=== PATIENT | female | born 1945 | race Caucasian/White ===

== ENCOUNTER → 2018-09-17 | Day surgery (SDC) | payer MEDICARE, BC ==
[2018-09-16 11:34] LABS: BASOPHILS % 0.4 % (0.0-1.0); EOSINOPHILS # (AUTO) 0.1 (0.0-0.4); EOSINOPHILS % 2.1 % (0.0-6.0); HEMATOCRIT 40.7 % (34.2-44.1); HEMOGLOBIN 12.9 g/dL (12.0-16.0); LYMPHOCYTES # (AUTO) 1.2 (1.0-3.2); MEAN CORPUSCULAR HEMOGLOBIN 30.2 pg (28-32); MEAN CORPUSCULAR HGB CONC 31.7 g/dL (31-35); MEAN CORPUSCULAR VOLUME 95.3 fL (81-99); MONOCYTES # (AUTO) 0.4 (0.2-0.8); MONOCYTES % 7.3 % (4.4-11.3); NEUTROPHILS # (AUTO) 3.6 (2.1-6.9); PLATELET COUNT 74 x10e3/uL (140-360); RED BLOOD COUNT 4.27 x10e6/uL (3.6-5.1); RED CELL DISTRIBUTION WIDTH 14.8 % (11.7-14.4)
[2018-09-16 11:52] LABS: ALBUMIN 3.3 g/dL (3.5-5.0); ANION GAP 11.1 mmol/L (8-16); CALCIUM 9.7 mg/dL (8.4-10.2); CREATININE, SERUM 1.01 mg/dL (0.57-1.11); POTASSIUM 4.1 mmol/L (3.5-5.1)
[2018-09-17] VITALS (11 sets, daily range): BP systolic 125–175; BP diastolic 51–81
[~2018-09-17] VITALS: Ht 160 cm; Wt 112.5 kg
[~2018-09-17] MED LIST: ALDACTONE100 MG PO; ALPRAZOLAM 0.5 MG TAB ONE; AMBIEN5 MG PO; CALCIUM 1,0001 EACH PO; CALCIUM 500+D1 EACH PO; CETIRIZINE HCL10 MG PO; CLINDAGEL40 ML TOP; DICLOFENAC 1% GEL TOP; DIPHENHYDRAMINE HCL 25 MG CAP ONE; ELIQUIS PO; FENTANYL CITRATE/PF 100MCG/2 ML INJ ONE; FERROUS SULFAT325 MG PO; FOLIC ACID1 MG PO; FUROSEMIDE40 MG PO; GABAPENTIN300 MG PO; GLIMEPIRIDE2 MG PO; HEPARIN SOD (PORCINE) 1000 UNIT/ML 30ML ONE; HEPARIN SOD/SOD CHLORIDE 2,000 ML ONE; HYDROCODONE-CH473 ML PO; IOPAMIDOL 370 MG/ML 200 ML INFUS..BTL INJ ONE; ISOSORBIDE MONO30 MG PO; JANUMET XR 50-1 EAC1 PO; LEVOTHYROXINE300 MCG PO; LIDOCAINE HCL 1% LOCAL INJ 20 ML VIAL ONE; MAGNESIUM400 MG PO; METOPROLOL TART50 MG PO; MIDAZOLAM HCL 2 MG/2 ML VIAL ONE; MINOCYCLINE HCL50 MG PO; NITROGLYCERIN/D5W 200 MCG/ML 250 ML ONE; PANTOPRAZOLE SO40 MG PO; PROBIOTIC & AC1 EACH PO; SENNA S TABLET1 EACH PO; SODIUM CHLORIDE 0.9% 1000ML 1,000 ML ONE; SUPER OMEGA-31000 MG PO; TORSEMIDE20 MG PO; ULTRAM 50MG50 MG PO; VALACYCLOVIR500 MG PO; VERAPAMIL HCL 2.5 MG/ML 2 ML VIAL ONE; VITAMIN D32000 UNIT PO; XOPENEX HFA15 GM IH; ZOLPIDEM TART6.25 MG PO; [UNRECOGNIZED DRUG - OTHER] PO; [UNRECOGNIZED DRUG - OTHER] PO
--- OUTSIDE RECORDS SUMMARY | 2018-09-17 06:17 | XMS REPORT | Continuity of Care Document ---
Author Author [facility] Interface Address Unknown Phone Unavailable Problems Problem Status Onset Date Classification Date Reported Comments Source N20.0 Active 06/26/2018 [facility] UNK Active 05/22/2018 [facility] DX: TYPE II DIABETES C Active 04/15/2018 [facility] XRAY Active 04/12/2018 [facility] DX: TYPE II DIABETES Active 03/15/2018 [facility] K74.0 R10.84 Active 09/03/2017 [facility] R10.9 Active 03/20/2017 [facility] M54.5 - LOW BACK PAIN Active 01/01/2017 [facility] DX: N20.0=/ M54.5=/ K74.66=/ R31.29= Active 10/25/2016 [facility] STONE PROTOCOL DX: R10.10=UPPER ABDOMIN Active 10/05/2016 [facility] D58.0 D74.0 R19.7 I85.00 Active 08/14/2016 [facility] ANEMIA Active 12/01/2015 [facility] VENOFER INFUSION Active 08/30/2015 [facility] RX PENDING Active 08/19/2015 [facility] D53.9 Active 06/17/2015 [facility] ABD PAIN Active 01/08/2014 [facility] Bone cancer<sup>1</sup> Resolved 09/03/2006 Problem 06/29/2017 right side ribs [facility] [place] Abdominal pain Resolved Problem 06/29/2017 [facility] [place] Anemia Resolved Problem 06/29/2017 [facility] [place] Back pain Resolved Problem 06/29/2017 [facility] [place] Breast cancer Resolved Problem 06/29/2017 [facility] [place] CHF (<span [id number]">Confirmed</span>) Resolved Problem 06/29/2017 [facility] [place] Chronic sinusitis Resolved Problem 06/29/2017 [facility] [place] COPD Resolved Problem 06/29/2017 [facility] [place] Diabetes mellitus Active Problem 10/01/2015 [facility] Active Problem 06/29/2017 [facility] [place] GERD - Gastro-esophageal reflux disease Active Problem 06/29/2017 [facility] [place] GI bleeding Resolved Problem 06/29/2017 [facility] [place] Hernia Resolved Problem 06/29/2017 [facility] [place] Hypothyroidism Resolved Problem 06/29/2017 [facility] [place] Influenza Resolved Problem 06/29/2017 [facility] [place] Lymphoma Active Problem 04/29/2016 [facility] MRSA infection Resolved Problem 06/29/2017 [facility] [place] Pneumonia Active Problem 06/29/2017 [facility] [place] Sleep apnea Resolved Problem 06/29/2017 [facility] [place] Thyroid cancer Resolved Problem 06/29/2017 [facility] [place] Diabetes mellitus Active Problem 06/29/2017 [facility] [place] Gastroesophageal reflux disease Resolved Problem 06/29/2017 [facility] [place] Iron deficiency anemia Resolved Problem 06/29/2017 [facility] [place] Myocardial infarction Resolved Problem 06/29/2017 [facility] [place] Non-Hodgkins lymphoma Resolved Problem 06/29/2017 [facility] [place] Obesity Resolved Problem 06/29/2017 [facility], [facility] [place] NUTRITIONAL ANEMIA, UNSPECIFIED Active [facility] IRON DEFICIENCY ANEMIA, UNSPECIFIED Active [facility] ANEMIA DUE TO OTHER DISORDERS OF GLUTATH Active [facility] ANEMIA, UNSPECIFIED Active [facility] HEPATIC FIBROSIS Active [facility] ESOPHAGEAL VARICES WITHOUT BLEEDING Active [facility] IRRITABLE BOWEL SYNDROME WITH DIARRHEA Active [facility] DIARRHEA, UNSPECIFIED Active [facility] UPPER ABDOMINAL PAIN, UNSPECIFIED Active [facility] CALCULUS OF KIDNEY Active [facility] LOW BACK PAIN Active [facility] OTHER MICROSCOPIC HEMATURIA Active [facility] UNSPECIFIED ABDOMINAL PAIN Active [facility] OTHER CHEST PAIN Active [facility] TYPE 2 DIABETES MELLITUS WITHOUT COMPLIC Active [facility] DORSALGIA, UNSPECIFIED Active [facility] GENERALIZED ABDOMINAL PAIN Active [facility] Medications Medication Details Route Status Patient Instructions Ordering Provider Order Date Source Visipaque 100 mL, Route: IV, Drug Form: SOLN, ONCE, Start date: 03/24/17 11:30:00 CDT, Stop date: 03/24/17 11:30:00 CDTNotes: (Same as: Cristal). WASTE: F/P - Black; E - Municipal Trash Bin Inactive 03/24/2017 [facility] Sodium Chloride 0.154 MEQ/ML Injectable Solution 1,000 mL, Rate: 25 ml/hr, Infuse over: 40 hr, Route: IV, Dosing Weight 119.727 kg, Total Volume: 1,000, Start date: 04/26/16 10:02:00 CDT, Duration: 1 day, Stop date: 04/27/16 10:01:00 CDT Inactive 04/26/2016 [facility] Vitamin D3 2000 intl units oral tablet 2,000 IntlUnit=1 tab, PO, Daily, 0 Refill(s) Active 12/10/2015 [facility] torsemide 20 mg oral tablet 20 mg=1 tab, PO, Daily, # 30 tab, 1 Refill(s) Active 12/10/2015 [facility] isosorbide dinitrate 10 mg oral tablet 10 mg=1 tab, PO, QID, # 120 tab, 0 Refill(s) Active 12/10/2015 [facility] glyBURIDE 5 mg oral tablet 5 mg=1 tab, PO, Breakfast, # 30 tab, 0 Refill(s) Active 12/10/2015 [facility] gabapentin 300 MG Oral Capsule 300 mg=1 cap, PO, Daily, 0 Refill(s) Active 12/10/2015 [facility] spironolactone 50 mg oral tablet 50 mg=1 tab, PO, Daily, # 30 tab, 1 Refill(s) Active 12/10/2015 [facility] tramadol hydrochloride 50 MG Oral Tablet 50 mg=1 tab, PO, Daily, 0 Refill(s) Active 12/10/2015 [facility] Vitamin B12 1,000 microgram, 1 mL, Route: IM, Drug form: INJ, ONCALL, Start date: 09/24/15 8:00:00, Duration: 12 hr, Stop date: 09/24/15 19:59:00Notes: (Same As: Vitamin B12) Inactive 09/24/2015 [facility] Benadryl 25 mg, 1 tab, Route: PO, Drug form: TAB, Q6H, PRN Itching, Start date: 09/23/15 14:00:00, Duration: 48 hr, Stop date: 09/25/15 13:59:00 No Longer Active 09/23/2015 [facility] acetaminophen 500 mg, 1 tab, Route: PO, Drug form: TAB, Q8H, PRN Other -See Comment, Start date: 09/23/15 12:00:00, Duration: 72 hr, Stop date: 09/26/15 11:59:00Notes: Max acetaminophen 4000 mg/day (4 gm/day). (S davion as: Tylenol Extra Strength) No Longer Active 09/23/2015 [facility] methylPREDNISolone 100 mg, 1.6 mL, Route: IV, Drug form: INJ, ONCALL, Start date: 09/23/15 9:00:00, Duration: 12 hr, Stop date: 09/23/15 20:59:00Notes: (Same as:Solu-MEDROL, A-Methapred) Inactive 09/23/2015 [facility] Benadryl 50 mg, 1 mL, Route: IVP, Drug form: INJ, ONCALL, Start date: 09/23/15 8:00:00, Duration: 12 hr, Stop date: 09/23/15 19:59:00Notes: (Same as: Benadryl) Inactive 09/23/2015 [facility] Venofer + Sodium Chloride 0.9% IV 235 mL 300 mg, 15 mL, Route: IV, Drug form: INJ, ONCALL, Start date: 09/23/15 8:00:00, Duration: 12 hr, Stop date: 09/23/15 19:59:00Notes: Each 5ml contains 100mg elemental iron. Mix with NS (Same as:Venofer) Administer IV only. MEDICATION WASTE Product Size: 100 mg Product Wasted: ___ mg Inactive 09/23/2015 [facility] Benadryl + Sodium Chloride 0.9% IV 50 mL 50 mg, 1 mL, Route: IVPB, Drug form: INJ, ONCALL, Start date: 09/17/15 12:00:00, Duration: 1 doses or timesNotes: (Same as: Benadryl) Active 09/17/2015 [facility] Benadryl 25 mg, 1 tab, Route: PO, Drug form: TAB, Q6H, PRN Itching, Start date: 09/17/15 12:00:00, Duration: 48 hr, Stop date: 09/19/15 11:59:00 No Longer Active 09/17/2015 [facility] methylPREDNISolone 100 mg, 1.6 mL, Route: IV, Drug form: INJ, ONCALL, Start date: 09/17/15 12:00:00, Duration: 12 hr, Stop date: 09/17/15 23:59:00Notes: (Same as:Solu-MEDROL, A-Methapred) Inactive 09/17/2015 [facility] acetaminophen 500 mg, 1 tab, Route: PO, Drug form: TAB, Q8H, PRN Other -See Comment, Start date: 09/17/15 12:00:00, Duration: 72 hr, Stop date: 09/20/15 11:59:00Notes: Max acetaminophen 4000 mg/day (4 gm/day). (S davion as: Tylenol Extra Strength) No Longer Active 09/17/2015 [facility] Venofer + Sodium Chloride 0.9% IV 235 mL 300 mg, 15 mL, Route: IV, Drug form: INJ, ONCALL, Start date: 09/17/15 12:00:00, Duration: 12 hr, Stop date: 09/17/15 23:59:00Notes: Each 5ml contains 100mg elemental iron. Mix with NS (Same as:Venofer) Administer IV only. MEDICATION WASTE Product Size: 100 mg Product Wasted: ___ mg Inactive 09/17/2015 [facility] Benadryl 25 mg, 1 tab, Route: PO, Drug form: TAB, Q6H, PRN Itching, Start date: 09/13/15 20:00:00, Duration: 48 hr, Stop date: 09/15/15 19:59:00 No Longer Active 09/14/2015 [facility] methylPREDNISolone 100 mg, 1.6 mL, Route: IV, Drug form: INJ, ONCALL, Start date: 09/13/15 14:00:00, Duration: 12 hr, Stop date: 09/14/15 1:59:00Notes: (Same as:Solu-MEDROL, A-Methapred) Inactive 09/13/2015 [facility] Venofer + Sodium Chloride 0.9% IV 235 mL 300 mg, 15 mL, Route: IV, Drug form: INJ, ONCALL, Start date: 09/13/15 14:00:00, Duration: 12 hr, Stop date: 09/14/15 1:59:00Notes: Each 5ml contains 100mg elemental iron. Mix with NS (Same as:Venofer) Administer IV only. MEDICATION WASTE Product Size: 100 mg Product Wasted: ___ mg Inactive 09/13/2015 [facility] Benadryl 50 mg, 1 mL, Route: IVP, Drug form: INJ, ONCALL, Start date: 09/13/15 14:00:00, Duration: 12 hr, Stop date: 09/14/15 1:59:00Notes: (Same as: Benadryl) Inactive 09/13/2015 [facility] acetaminophen 500 mg, 1 tab, Route: PO, Drug form: TAB, Q8H, PRN Other -See Comment, Start date: 09/13/15 13:48:00, Duration: 72 hr, Stop date: 09/16/15 13:47:00Notes: Max acetaminophen 4000 mg/day (4 gm/day). (S davion as: Tylenol Extra Strength) No Longer Active 09/13/2015 [facility] Vitamin B12 1,000 microgram, 1 mL, Route: IM, Drug form: INJ, ONCALL, Start date: 09/06/15 12:00:00, Duration: 12 hr, Stop date: 09/06/15 23:59:00Notes: (Same As: Vitamin B12) Inactive 09/06/2015 [facility] Benadryl 50 mg, 1 mL, Route: IVP, Drug form: INJ, ONCALL, Start date: 09/06/15 12:00:00, Duration: 12 hr, Stop date: 09/06/15 23:59:00Notes: (Same as: Benadryl) Inactive 09/06/2015 [facility] acetaminophen 500 mg, 1 tab, Route: PO, Drug form: TAB, Q8H, PRN Other -See Comment, Start date: 09/06/15 12:00:00, Duration: 72 hr, Stop date: 09/09/15 11:59:00Notes: Max acetaminophen 4000 mg/day (4 gm/day). (S davion as: Tylenol Extra Strength) No Longer Active 09/06/2015 [facility] Venofer + Sodium Chloride 0.9% IV 235 mL 300 mg, 15 mL, Route: IV, Drug form: INJ, ONCALL, Start date: 09/06/15 12:00:00, Duration: 12 hr, Stop date: 09/06/15 23:59:00Notes: Each 5ml contains 100mg elemental iron. Mix with NS (Same as:Venofer) Administer IV only. MEDICATION WASTE Product Size: 100 mg Product Wasted: ___ mg Inactive 09/06/2015 [facility] methylPREDNISolone 100 mg, 1.6 mL, Route: IV, Drug form: INJ, ONCALL, Start date: 09/06/15 11:00:00, Duration: 12 hr, Stop date: 09/06/15 22:59:00Notes: (Same as:Solu-MEDROL, A-Methapred) Inactive 09/06/2015 [facility] Vitamin B12 1,000 microgram, 1 mL, Route: IM, Drug form: INJ, ONCALL, Start date: 08/31/15 12:00:00, Duration: 12 hr, Stop date: 08/31/15 23:59:00Notes: (Same As: Vitamin B12) Inactive 08/31/2015 [facility] Benadryl 25 mg, 1 tab, Route: PO, Drug form: TAB, Q6H, PRN Itching, Start date: 08/30/15 18:00:00, Duration: 48 hr, Stop date: 09/01/15 17:59:00 No Longer Active 08/31/2015 [facility] methylPREDNISolone 100 mg, 1.6 mL, Route: IV, Drug form: INJ, ONCALL, Start date: 08/30/15 12:00:00, Duration: 12 hr, Stop date: 08/30/15 23:59:00Notes: (Same as:Solu-MEDROL, A-Methapred) Inactive 08/30/2015 [facility] acetaminophen 500 mg, 1 tab, Route: PO, Drug form: TAB, Q8H, PRN Other -See Comment, Start date: 08/30/15 12:00:00, Duration: 72 hr, Stop date: 09/02/15 11:59:00Notes: Max acetaminophen 4000 mg/day (4 gm/day). (S davion as: Tylenol Extra Strength) No Longer Active 08/30/2015 [facility] Benadryl 50 mg, 1 mL, Route: IVP, Drug form: INJ, ONCALL, Start date: 08/30/15 12:00:00, Duration: 12 hr, Stop date: 08/30/15 23:59:00Notes: (Same as: Benadryl) Inactive 08/30/2015 [facility] Venofer + Sodium Chloride 0.9% IV 235 mL 300 mg, 15 mL, Route: IV, Drug form: INJ, ONCALL, Start date: 08/30/15 12:00:00, Duration: 12 hr, Stop date: 08/30/15 23:59:00Notes: Each 5ml contains 100mg elemental iron. Mix with NS (Same as:Venofer) Administer IV only. MEDICATION WASTE Product Size: 100 mg Product Wasted: ___ mg Inactive 08/30/2015 [facility] Lasix 20 mg, 2 mL, Route: IV, Drug form: INJ, ONCALL, Start date: 06/21/15 10:30:00, Duration: 1 doses or timesNotes: (Same as: Lasix) Active 06/21/2015 [facility] Sodium Chloride 0.9% IV IV, 30 ml/hr, ONCALL, Start date: 06/21/15 10:00:00, Duration: 1, 250 ml Active 06/21/2015 [facility] Allergies, Adverse Reactions, Alerts Substance Category Reaction Severity Reaction type Status Date Reported Comments Source penicillin Assertion Drug allergy Active [facility] PLASTIC TAPE Assertion Drug allergy Active [facility] Immunizations Immunization Date Given Site Status Last Updated Comments Source Results Order Name Results Value Reference Range Date Interpretation Comments Source Abdomen/Pelvis wo IV contrast CT Abdomen/Pelvis wo IV contrast CT EXAM: CT ABDOMEN AND PELVIS WITHOUT CONTRAST CLINICAL INDICATION: 73 years old Female with - N20.1 Calculus of ureter, M54.5 Low back pain. TECHNIQUE: GI CONTRAST: None. IV CONTRAST: None. Helical axial imaging was performed from the diaphragm through the symphysis. Coronal and sagittal reformations obtained. CT imaging performed at this location utilizes radiation dose optimization techniques which include one or more of the following: -Automated exposure control -Adjustment of the mA and/or kV according to patient size -Use of iterative reconstruction technique CT Radiation Dose DLP 1424 mGy-cm COMPARISON: CT abdomen/pelvis 05/15/2018 FINDINGS: This examination is limited for the evaluation of solid organs and vascular structures due to lack of intravenous contrast. LOWER CHEST: Mild dependent atelectatic changes in the lung bases. Coronary artery calcifications. SOLID ORGANS: Nodular contour suggestive of cirrhosis. No focal hepatic lesion or intrahepatic biliary ductal dilatation is seen. Prior cholecystectomy. Spleen is enlarged measuring 23.4 cm in AP dimension. Fatty atrophy of the pancreas. Stable 2.0 cm right adrenal nodule. The spleen, pancreas, and adrenal glands are otherwise normal in non-enhanced appearance. No renal/ureteral calculus, hydronephrosis, or mass is apparent. BOWEL: The small bowel and colon are normal in caliber without wall thickening. Appendix not clearly identified. Sigmoid diverticulosis without evidence of acute diverticulitis. PERITONEUM: Paraesophageal varices and splenorenal shunt. Stable central mesenteric haziness. Mildly prominent central mesenteric lymph nodes. Trace abdominal free fluid. Small fat-containing ventral abdominal hernia. RETROPERITONEUM: The aorta is normal in caliber. Mild atherosclerotic calcifications in the aorta and its distal branches. PELVIS: The visualized urinary bladder wall is normal thickness. Uterus is absent. MUSCULOSKELETAL: No acute osseous abnormality is seen. No destructive lytic or blastic osseous lesion is noted. Chronic L4 compression fracture. Degenerative changes in the spine and pelvis. Nonspecific subcutaneous venous edema in the pannus. IMPRESSION: 1. No urolithiasis or hydronephrosis. 2. Cirrhotic liver with sequela of portal hypertension including splenomegaly, mesenteric haziness, varices, and trace ascites. 3. Stable right adrenal nodule. 4. Sigmoid diverticulosis without evidence of acute diverticulitis. SL: [id number] 08/05/2018 - - Read by: Flori Jensen MD Dictated Date/time: 08/05/18 14:46 Electronically Signed by: Flori Jensen MD 08/05/18 15:03 FINAL REPORT [facility] Abdomen AP DX Abdomen AP DX Clinical Indication: - n20.0 renal stone Comparison: CT abdomen/pelvis with and without IV contrast from 05/15/2018. FINDINGS: The AP supine view of the abdomen shows a non-obstructive bowel gas pattern. There is no abnormal dilatation of bowel loops. There is no pneumatosis or mass effect. Cholecystectomy clips are visualized projecting over the right upper quadrant of the abdomen. Scattered calcific foci are projected over the left upper quadrant of the abdomen, consistent with splenic artery calcifications. A double-J ureteral stent is visualized projecting over the right hemiabdomen and right hemipelvis, appearing appropriately positioned by radiographic standards. A 6 mm ovoid radiopaque density is noted projecting over the right hemipelvis and in the expected location of the bladder. This may relate to recently-visualized 7 mm obstructing right-sided ureteral stone, now residing within the bladder lumen. Alternatively, this may relate to a phlebolith. Postsurgical changes are noted in the lower lumbar spine with a chronic fracture deformity of the L4 vertebral body seen once again. Multilevel degenerative changes are also appreciated throughout the visualized spine. IMPRESSION: 1. Double-J ureteral stent appearing appropriately positioned by radiographic standards, as detailed above. 2. A 6 cm ovoid radiopaque density projecting over the right hemipelvis and in the expected location of the bladder. This may relate to the recently-visualized 7 mm obstructing right-sided ureteral stone, now residing within the bladder lumen. Alternatively, this may relate to a phlebolith. 3. Chronic/incidental findings, as detailed above. SL: [id number] 06/26/2018 - - Read by: Federico Hensley DO Dictated Date/time: 06/26/18 11:44 Electronically Signed by: Federico Hensley DO 06/26/18 11:53 FINAL REPORT [facility] Abdomen/Pelvis w/wo IV contrast CT Abdomen/Pelvis w/wo IV contrast CT Patient Name: YASHIRA HOYT : 1945; Age: 72 years Female MR: [id number] Study: Abdomen/Pelvis w/wo IV contrast CT 05/15/2018 11:59 AM CDT Clinical Indication: Liver protocol - K74.0 Hepatic fibrosis. Pt fell had trauma to abdomen, pt has cirrhosis, pt said her wants to make sure her liver and kidneys are ok and she's not bleeding COMPARISON: CAT scans March 24, 2017. November 24, 2016. October 05, 2016. TECHNIQUE: Helical imaging was performed diaphragm through the symphysis with multiplanar reformations obtained before and after the administration of IV contrast. CT imaging performed at this location utilizes radiation dose optimization techniques which include one or more of the following: -Automated exposure control -Adjustment of the mA and/or kV according to patient size -Use of iterative reconstruction technique CT Radiation Dose DLP 4219 mGy-cm IV contrast: 150 cc Omnipaque IV Oral contrast: 100 cc of water by mouth CT OF THE ABDOMEN AND PELVIS WITHOUT AND WITH IV CONTRAST: LOWER CHEST: The lung bases are clear. Cardiomegaly with coronary artery calcifications. ABDOMEN: No free air. Paraesophageal varices. Increased mistiness to the mesentery. Small ventral abdominal fat-containing hernia. Small central mesenteric lymph nodes. Nonspecific edema of the subcutaneous pannus. LIVER: Cirrhotic morphology to the liver. BILIARY TREE: Normal. GALLBLADDER: Surgically absent. PANCREAS: Fatty atrophic change to the pancreas. SPLEEN: Splenomegaly again noted with the spleen measuring 24 cm CC. ADRENALS: Right adrenal nodule appears stable measuring 2 cm x 2 cm, similar to the prior exams. KIDNEYS: No stones. Moderate right hydronephrosis and hydroureter. Subcentimeter low-density right renal lesion is too small to accurately characterize. The [employer] (A[employer]) consensus guidelines for asymptomatic patients age 18 and older recommend no further follow-up imaging for: Cystic renal lesion less than 1 cm. PELVIS: Hydroureter secondary to a distal right ureteral stone measuring 12 mm CC by 8 mm, 645 Hounsfield units. The bladder is normal. No large pelvic mass. BOWEL: No small bowel obstruction. Mild degree of colonic stool. Mild sigmoid diverticulosis. PERITONEUM: No free intraperitoneal fluid. RETROPERITONEUM: The aorta is normal. There is no pathologic lymphadenopathy. MUSCULOSKELETAL: Chronic L4 compression fracture with 50% loss of height. Thoracic and lumbar spondylosis. IMPRESSION: 1. Distal right ureteral stone resulting in right-sided obstructive change. 2. Cirrhotic liver with splenomegaly described on prior exams. 3. Increased mesenteric edema is nonspecific. This was present on the prior exams and may be slightly progressed. This may be related to the underlying cirrhosis, panniculitis. A process such as lymphoma is considered less likely. 4. Postcholecystectomy. 5. Stable right adrenal nodule. These findings are communicated to Lucie Mills MD via perfect serve at 05/16/2018 10:19 AM CDT. SL: [id number] 05/15/2018 - - Read by: Kd Owens MD Dictated Date/time: 05/16/18 09:47 Electronically Signed by: Kd Owens MD 05/16/18 10:19 FINAL REPORT [facility] Spine lumbar 2 or 3 views DX Spine lumbar 2 or 3 views DX Lumbar spine 2 views 04/12/2018 HISTORY: Back pain. Comparison is made to MRI performed 01/19/2017 FINDINGS: 60% vertebral body compression fracture at L4 is unchanged. There is kyphoplasty cement within the L4 vertebral body and within the L3-L4 disc space. Moderate disc space narrowing and osteophytes are at L1-L2, L2-L3, and L4-L5. Bridging osteophytes are present anteriorly at L1-L2. Vertebral body heights are maintained. No acute fracture is present. No aggressive lesion is present. Pedicles and spinous processes are within normal limits. IMPRESSION: 1. Unchanged 60% vertebral body compression fracture at L4 after kyphoplasty procedure. 2. Moderate degenerative changes from L1-L2 through L4-L5. 3. No acute fracture or dislocation. SL: [id number] 04/12/2018 - - Read by: Nolberto Dorsey MD Dictated Date/time: 04/12/18 18:14 Electronically Signed by: Nolberto Dorsey MD 04/12/18 18:17 FINAL REPORT [facility] Spine thoracic 2 views DX Spine thoracic 2 views DX Thoracic spine 2 views 04/12/2018 HISTORY: Back pain FINDINGS: Kyphoplasty procedure has been performed at T7 and T8 vertebral bodies. There is contrast extending into the left T6-7 paravertebral soft tissues. There are bridging osteophytes throughout the thoracic spine with calcification of the anterior longitudinal ligament. No vertebral body height loss is noted. This was narrowing at T5-T6, T6-T7, T7-T8, T8-T9, T9-T10, T10- T11, and T11-T12 is noted. Pedicles are within normal limits. Cardiomegaly is noted. IMPRESSION: 1. Status post kyphoplasty procedure at T6 and T7. 2. Calcification of anterior longitudinal ligament with degenerative changes throughout thoracic spine. 3. No acute fracture or dislocation. SL: [id number] 04/12/2018 - - Read by: Nolberto Dorsey MD Dictated Date/time: 04/12/18 18:19 Electronically Signed by: Nolberto Dorsey MD 04/12/18 18:21 FINAL REPORT [facility] Spine cervical 2 or 3 view DX Spine cervical 2 or 3 view DX Cervical spine 3 views 04/12/2018 HISTORY: Neck pain FINDINGS: There is grade 1 anterolisthesis at C5-C6 with disc space narrowing and osteophytes. Grade 1 anterolisthesis at C5-C6 is noted. Vertebral body heights are maintained. No prevertebral soft tissue swelling is noted. Bilateral uncovertebral joint hypertrophy is present at C3-C4, C4-C5, and C5-C6. IMPRESSION: 1. Grade 1 anterolisthesis at C5-C6 with disc space narrowing and osteophytes. 2. No acute fracture. No soft tissue swelling. : [id number] 04/12/2018 - - Read by: Nolberto Dorsey MD Dictated Date/time: 04/12/18 18:17 Electronically Signed by: Nolberto Dorsey MD 04/12/18 18:18 FINAL REPORT [facility] Ribs bilateral DX Ribs bilateral DX Bilateral RIBS: Multiple right rib deformities are noted consistent with old fractures. There are no visible acute fractures or destructive lesions. There are no acute intrathoracic abnormalities. Vertebroplasty in the thoracic and lumbar spine is noted. There are no acute intrathoracic abnormalities. IMPRESSION: No acute radiographic abnormalities of the ribs. [id number] 04/01/2018 - - Read by: Juan Barrera MD Dictated Date/time: 04/01/18 14:16 Electronically Signed by: Juan Barrera MD 04/01/18 14:18 FINAL REPORT [facility] Abdomen AP DX Abdomen AP DX Patient Name: YASHIRA HOYT : 1945; Age: 72 years y/o Female MR: [id number] * ABDOMEN, 1 view HISTORY: Renal stone disease. Cirrhosis. COMPARISON: 10/25/2016. Sepsis a computed tomography scan of the abdomen and pelvis of 03/24/2017 was also reviewed. TECHNIQUE: A supine radiograph of the abdomen was obtained. IMPRESSION: 1. 2 faintly calcified right renal calculi are noted. There is an approximately 8 mm right upper pole renal calculus and an approximately 5 mm right lower pole renal calculus. 2. No other calculi are seen. There are no ureteral calculi or left-sided calculi. An approximately 4 mm calculus in the right pelvis represents a phlebolith as demonstrated on the prior CT study. 3. The bowel gas pattern is unremarkable. There is no evidence of obstruction or ileus. 4. There are surgical clips in the right upper quadrant consistent with a prior cholecystectomy. 5. Prior vertebral augmentation procedure was cement at L4. There are degenerative changes scattered throughout the visualized spine, greatest at L4-L5. SL: [id number] 06/26/2017 - - Read by: Benjamín Taveras MD Dictated Date/time: 06/26/17 16:07 Electronically Signed by: Benjamín Taveras MD 06/26/17 16:10 FINAL REPORT [facility] CHEM PANEL eGFR 58 mL/min/1.73m2 03/24/2017 Result Comment: The eGFR is calculated using the CKD-EPI formula. In most young, healthy individuals the eGFR will be >90 mL/min/1.73m2. The eGFR declines with age. An eGFR of 60-89 may be normal in some populations, particularly the elderly, for whom the CKD-EPI formula has not been extensively validated. Use of the eGFR is not recommended in the following populations: Individuals with unstable creatinine concentrations, including patients and those with serious co-morbid conditions. Patients with extremes in muscle mass or diet. The data above are obtained from the National Kidney Disease Education Program (NKDEP) which additionally recommends that when the eGFR is used in patients with extremes of body mass index for purposes of drug dosing, the eGFR should be multiplied by the estimated BMI. [facility] CHEM PANEL POC Creatinine 1.0 mg/dL 0.5 - 1.4 03/24/2017 [facility] Chest/Abdomen/Pelvis w IV contrast CT Chest/Abdomen/Pelvis w IV contrast CT Chest/Abdomen/Pelvis w IV contrast CT CLINICAL HX: CT dose DLP 2773 mGy-cm 25mL ORAL/ 100mL VISIPAQUE IV. VM - R10.9 Unspecified abdominal pain/ PT WITH HX OF CANCER.. COMPARISON: 11/24/2016, 08/15/2016 TECHNIQUE: Contiguous transaxial images of the chest, abdomen and pelvis were performed with IV contrast. Reformats are available in sagittal and coronal projections. NOTE: Oral contrast was not administered. This limits evaluation of bowel. CT CHEST: SUPPORT DEVICES: none LOWER NECK: Symmetric appearance of thyroid gland without focal abnormality. LUNGS AND AIRWAYS: Extensive patchy groundglass opacities are visualized in both lungs. No consolidation or any significant effusion. The trachea and the proximal bronchi are patent. CARDIOVASCULAR: Mild to moderate cardiomegaly. Coronary artery calcifications. The aorta demonstrates normal morphology. No evidence for dissection or aneurysm. LYMPH NODES: A few scattered lymph nodes in the range of 6 mm to 12 mm are visualized in the anterior mediastinum and subcarinal locations. BONE AND SOFT TISSUE: No significant bony abnormality is noted. ESOPHAGUS: The esophagus demonstrates normal morphology. CT ABDOMEN: ABDOMINAL VISCERA: Extensive fatty infiltration of liver. Cirrhotic changes of the liver with splenomegaly. Sagittal length of the spleen measures greater than 17 cm. Stable 2.6 cm nodule right adrenal gland. Gallbladder demonstrates normal morphology. GI TRACT: Bowel gas pattern is unremarkable. Scattered areas of mesenteric stranding are unchanged from previous study. There is no evidence for free fluid or free air in the abdomen. TRACT: Nonobstructing calyceal calculi, right kidney, unchanged. No hydronephrosis. LYMPH NODES: No significant retroperitoneal lymphadenopathy is noted. VASCULATURE: No evidence for AAA. BONE AND SOFT TISSUES: Stable compression deformity of L4 level with vertebroplasty cement. Vertebroplasty changes are also noted at and levels. Extensive thoracolumbar degenerative changes. No other significant bony abnormality is noted. There is edema and subcutaneous tissues of the abdominal wall similar to previous study.. CT PELVIS: The bladder, seminal vesicles and prostate gland demonstrate normal morphology. No free fluid is present in the pelvis. IMPRESSION: Extensive, nonspecific patchy groundglass opacities are visualized in both lungs. Primary differential considerations are infectious/inflammatory etiologies. Mild to moderate cardiomegaly. Coronary artery calcifications. Fatty infiltration of liver. Cirrhotic changes of liver with portal hypertension with associated splenomegaly and edema in the subcutaneous tissues of the abdominal wall. Nonobstructing calyceal calculi right kidney. No hydronephrosis. Stable 2.6 cm nodule, right adrenal gland. Scattered areas of mesenteric stranding unchanged from previous study. Sigmoid diverticulosis. No CT evidence for diverticulitis. SL: [id number] 03/24/2017 - - Read by: Lenin Millan MD Dictated Date/time: 03/26/17 14:16 Electronically Signed by: Lenin Millan MD 03/26/17 14:39 FINAL REPORT [facility] Hand 2 views Bilateral DX Hand 2 views Bilateral DX EXAM: Hand 2 views Bilateral DX HISTORY: - M25.50 Pain in unspecified joint COMPARISON: None 2 views of each hand. The bones appear osteopenic. There is advanced diffuse DIP and scattered PIP joint degenerative osteoarthritis and moderate bilateral thumb carpometacarpal degenerative change. No erosions are seen. IMPRESSION: Advanced degenerative osteoarthritis. 03/22/2017 - - Read by: Iva Avila MD Dictated Date/time: 03/22/17 09:25 Electronically Signed by: Iva Avila MD 03/22/17 09:27 FINAL REPORT [facility] Knee 1-2 Views Bilateral DX Knee 1-2 Views Bilateral DX EXAM: Knee 1-2 Views Bilateral DX HISTORY: - M25.50 Pain in unspecified joint COMPARISON: None AP and lateral views of both knees. FINDINGS: Right knee: There is moderate medial tibiofemoral joint space narrowing. Tricompartmental osteophyte formation noted. No fracture, dislocation or significant joint effusion. Left knee: There is a transversely oriented screw through the proximal tibial metaphysis. Tricompartmental osteophyte formation. No fracture or dislocation. No effusion. IMPRESSION: Degenerative change as above. 03/22/2017 - - Read by: Iva Avila MD Dictated Date/time: 03/22/17 09:23 Electronically Signed by: Iva Avila MD 03/22/17 09:25 FINAL REPORT [facility] Spine Thoracic wo contrast MRI Spine Thoracic wo contrast MRI EXAM: SPINE THORACIC WO CONTRAST MRI DATE:- 01/19/2017 4:53 PM CDT . TECHNIQUE: Multiplanar, multisequence MRI thoracic spine without IV contrast COMPARISON: Unavailable FINDINGS: There is moderate T6 height loss with mild marrow edema, but no retropulsion. There is no worrisome marrow signal abnormality. The thoracic cord signal is normal and homogenous. There is minimal increased signal in the anterior paraspinal soft tissues at T6-T7. INTERVERTEBRAL DISC SPACES, SPINAL CANAL, AND NEURAL FORAMINA: T6-T7: The disc space is narrowed with circumferential disc osteophyte complex asymmetric to the ventral/prevertebral side. There are chronic Schmorl's nodes at both endplates. There is mild facet enlargement. Central canal measures 11 mm with no mass effect on spinal cord. There is mild narrowing of the neural foramina. Aside from desiccation, the remaining disc levels are unremarkable, and the spinal canal is widely patent. The neural foramina are patent. IMPRESSION: 1. Moderate T6 vertebral body height loss with marrow edema, but no retropulsion. If indicated, kyphoplasty may be considered. 2. T6-T7 prevertebral soft tissue edema is likely traumatic related to compression deformity. Infectious/inflammatory process is thought less likely. 3. T6-T7 disc degeneration without high-grade central canal or neural foramen stenosis. There is no mass effect on the spinal cord 01/19/2017 - - Read by: Rustam Diaz MD Dictated Date/time: 01/20/17 09:50 Electronically Signed by: Rustam Diaz MD 01/20/17 10:05 FINAL REPORT [facility] [place] Spine lumbar wo contrast MRI Spine lumbar wo contrast MRI EXAM: MRI LUMBAR SPINE WITHOUT CONTRAST DATE: 01/19/2017 4:53 PM CDT . TECHNIQUE: Multiplanar, multisequence MRI lumbar spine without IV contrast COMPARISON: 11/24/2016 CT abdomen pelvis FINDINGS: For the purposes of enumeration, the lowest well formed intervertebral disc was counted as L5-S1 on this exam. INTRASPINAL CONTENTS/CONUS: The conus terminates at L1-L2. No definite dural based lesion. VERTEBRAE: There is stable, severe (greater than 60%) L4 superior endplate height loss with 3 mm retropulsion. No focal suspicious bone marrow signal abnormality. PARASPINAL SOFT TISSUES: No edema or definite masses. No aortic aneurysm. Postoperative changes. DISC SPACES, SPINAL CANAL, AND NEURAL FORAMINA: T12-L1. Intervertebral disc height and signal are maintained. Posterior elements are normal. There is no stenosis. L1-L2. The disc is dehydrated with mild height loss and small diffuse bulge. Facets are unremarkable. Central canal measures 13 mm. Neural foramina are patent. L2-L3. Loss of intervertebral disc height and signal with diffuse disc bulge/osteophyte complex. There is bilateral facet hypertrophy with ligamentous redundancy. Central canal measures 8 mm. Lateral recesses are patent. There is moderate narrowing of the right neural foramen and moderate to severe narrowing of the left. L3-L4. Disc is dehydrated with circumferential disc osteophyte complex. Facets are enlarged. Patient is status post posterior decompression. Central canal measures 9 mm with no crowding of the cauda equina. Lateral recesses are narrowed with no compression of the L4 nerve roots. There is moderate to severe left neural foramen narrowing and moderate narrowing of the right. L4-L5. Disc is dehydrated with circumferential disc osteophyte complex. Facets are enlarged. Patient is status post posterior decompression. Central canal measures 9 mm with no cauda equina crowding. Lateral recesses are narrowed with disc contacting descending L5 nerve roots. There is severe narrowing of the neural foramina bilaterally. L5-S1. Disc height is maintained. There is a circumferential disc osteophyte complex extending to each neural foramen. There is left greater than right facet hypertrophy. Central canal measures 11 mm. Lateral recesses are patent. There is moderate narrowing of the left neural foramen. The extra foraminal segment of the left L5 nerve root is displaced by osteophyte complex. IMPRESSION: 1. Stable severe L4-L5 compression deformity with retropulsion 2. Multiple levels of mild spinal stenosis without substantial mass effect on the cauda equina 3. Severe bilateral L4-L5 neural foramen narrowing. Moderate to severe neural foramen narrowing on the left at L2-L3 and L3-L4 01/19/2017 - - Read by: Rustam Diaz MD Dictated Date/time: 01/20/17 10:29 Electronically Signed by: Rustam Diaz MD 01/20/17 10:38 FINAL REPORT [facility] CHEM PANEL POC Creatinine 1.0 mg/dL 0.5 - 1.4 11/24/2016 [facility] CHEM PANEL eGFR 58 mL/min/1.73m2 11/24/2016 Result Comment: The eGFR is calculated using the CKD-EPI formula. In most young, healthy individuals the eGFR will be >90 mL/min/1.73m2. The eGFR declines with age. An eGFR of 60-89 may be normal in some populations, particularly the elderly, for whom the CKD-EPI formula has not been extensively validated. Use of the eGFR is not recommended in the following populations: Individuals with unstable creatinine concentrations, including patients and those with serious co-morbid conditions. Patients with extremes in muscle mass or diet. The data above are obtained from the National Kidney Disease Education Program (NKDEP) which additionally recommends that when the eGFR is used in patients with extremes of body mass index for purposes of drug dosing, the eGFR should be multiplied by the estimated BMI. [facility] Abdomen/Pelvis w/wo IV contrast CT Abdomen/Pelvis w/wo IV contrast CT Study: Abdomen/Pelvis w/wo IV contrast CT Clinical Indication: back pain, renal stone - CT DLP dose 3767 mGycm 75cc visi iv Comparison: CT abdomen and pelvis from 10/05/2016 TECHNIQUE: Multiple axial CT images of the abdomen and pelvis were acquired before and after the administration of intravenous contrast. Sagittal and coronal reformatted images were performed. CT Radiation Dose DLP 3767 mGy-cm FINDINGS: The visualized lung bases are clear bilaterally. The liver is cirrhotic in morphology with a nodular contour. Splenomegaly is seen. Numerous esophageal varices are noted. Patient is status post cholecystectomy. Pancreas is unremarkable. Right adrenal nodule is stable. Left adrenal gland is not well-visualized. 6 mm calyceal stone in the right kidney is seen. Smaller 3 mm calyceal stone in the inferior pole of the right kidney is noted. No obstructing ureteral stones are seen. Left kidney is unremarkable. No intrahepatic or extrahepatic biliary duct dilatation is seen. No filling defects are noted throughout the opacified portions of the renal collecting systems, ureters, or bladder on the delayed excretory phase images. Urinary bladder is under distended. Patient is status post hysterectomy. Multiple sigmoid diverticula are seen without inflammatory change to suggest acute diverticulitis. The appendix is not clearly visualized. No free air, free fluid, or pathologic adenopathy is seen. Mild haziness of the mesentery is seen, nonspecific. Diffuse arterial calcifications are noted. Advanced degenerative changes of the lumbar spine are seen. Osseous structures are stable. The superficial soft tissues are diffusely edematous. IMPRESSION: 1. Stable nonobstructive right nephrolithiasis. 2. Cirrhotic morphology of the liver with sequela of portal hypertension. 3. Sigmoid diverticulosis without acute diverticulitis. SL: [id number] 11/24/2016 - - Read by: Jaspal Parkinson MD Dictated Date/time: 11/24/16 10:40 Electronically Signed by: Jaspal Parkinson MD 11/24/16 10:45 FINAL REPORT [facility] Abdomen AP DX Abdomen AP DX Study: Abdomen, 2 views Clinical Indication: N20.0 Calculus of kidney,M54.5 Low back pain Comparison: Abdomen x-rays from 06/13/2007 FINDINGS: 2 views of the abdomen show a nonobstructive bowel gas pattern. No suspicious abdominal calcifications are seen. Degenerative changes of the lumbar spine are noted. Changes of prior vertebral body augmentation in the lower lumbar spine are present. IMPRESSION: No definitive nephrolithiasis. SL: [id number] 10/25/2016 - - Read by: Jaspal Parkinson MD Dictated Date/time: 10/25/16 11:26 Electronically Signed by: Jaspal Parkinsno MD 10/25/16 11:26 FINAL REPORT [facility] Renal Stone CT Renal Stone CT Patient Name: YASHIRA HOYT : 1945; Age: 71 years y/o Female MR: [id number] Study: Renal Stone CT 10/05/2016 1:51 PM [employer] Ordering Physician: Trevin Torre MD Comparison: 08/15/2016 CT Radiation Dose DLP 1112.14 mGy-cm Clinical Indication: Upper abdominal pain; patient complains of upper and RLQ abdominal pain and also has history of kidney stones; CT DLP - 1112.14 mGycm Multiple computerized axial tomograms of the abdomen and pelvis were obtained without contrast utilizing renal stone protocol. 2-D sagittal and coronal reformation reconstruction images were obtained. The use of this protocol may excluded a portion of the upper abdominal viscera. Mild cardiomegaly associated with coronary artery calcifications. Thoracic and lumbar spondylosis are noted associated with degenerative arthropathy of the lower lumbar apophyseal joints. Dependent volume loss at both lung bases. Generalized hepatomegaly with cirrhotic morphology and diffuse fatty infiltration of the liver. Moderate splenomegaly measuring 16 cm in length. Surgical clips gallbladder fossa status post cholecystectomy. Nonobstructing calculi measuring 6 mm and 5 mm are noted at the mid right kidney and inferior pole of the right kidney, respectively. Renal vascular calcification is noted at the left renal hilus. No left renal or ureteral calculus is noted. Nonspecific stranding in the perinephric fat is noted bilaterally. Diffuse fatty infiltration of the pancreas. Nonspecific stranding and groundglass opacity is present in the peripancreatic retroperitoneal fat extending into the mesenteric fat similar to the previous exam. The left adrenal gland is not visualized. A 1.9 x 2.0 cm right adrenal nodular mass is present likely representing an adenoma. Vascular calcification at the normal caliber abdominal aorta extending into the abdominal visceral arteries is noted. Subcutaneous edema is noted at the ventral aspect of the abdomen. Fenestration of the ventral abdominal wall is noted associated with small fat filled hernia sacs and superimposed upon generalized laxity and attenuation of the ventral abdominal wall not associated with bowel within the hernia sacs or evidence of incarceration or strangulation. A few scattered colonic diverticula are present at the abdomen associated with mild constipation. No small or large bowel dilatation. No free fluid or pneumoperitoneum. Mild constipation at the cecum and sigmoid colon. Diverticula are present at the sigmoid colon. The appendix is not visualized. No right lower quadrant inflammatory changes are noted. Subcutaneous edema is present at the ventral abdominal wall extending into the pannus of the patient. Skin thickening at the pannus of the patient is contiguous with skin thickening at the umbilicus. The uterus is surgically absent. No pelvic ureteral or bladder calculus. Venous vascular and arterial calcifications are noted at the pelvis. Degenerative changes are noted at the hip, sacroiliac and lower lumbar apophyseal joints. Findings at the lumbar spine are unchanged from the previous study. IMPRESSION: 1. Previously described right lower lobe nodule is noted identified on the present exam. 2. The appendix is not conclusively identified. No right lower quadrant inflammatory changes. 3. Findings at the abdomen and pelvis are similar to the previous study. 4. Nonobstructing renal calculi at the right kidney are unchanged. 5. Hepatosplenomegaly with diffuse fatty infiltration of the liver unchanged. Diffuse fatty infiltration of the pancreas. 6. Right adrenal nodular mass is incrementally decreased in size from the previous exam. 7. Findings at the ventral abdominal wall and pannus are unchanged. 8. The uterus is surgically absent. The gallbladder is surgically absent. 9. Sigmoid diverticulosis. 10. Findings at the lumbar spine are unchanged. SL: [id number] 10/05/2016 - - Read by: Chalino Mota MD Dictated Date/time: 10/05/16 15:07 Electronically Signed by: Chalino Mota MD 10/05/16 15:23 FINAL REPORT [facility] CHEM PANEL eGFR 75 mL/min/1.73m2 08/15/2016 Result Comment: The eGFR is calculated using the CKD-EPI formula. In most young, healthy individuals the eGFR will be >90 mL/min/1.73m2. The eGFR declines with age. An eGFR of 60-89 may be normal in some populations, particularly the elderly, for whom the CKD-EPI formula has not been extensively validated. Use of the eGFR is not recommended in the following populations: Individuals with unstable creatinine concentrations, including patients and those with serious co-morbid conditions. Patients with extremes in muscle mass or diet. The data above are obtained from the National Kidney Disease Education Program (NKDEP) which additionally recommends that when the eGFR is used in patients with extremes of body mass index for purposes of drug dosing, the eGFR should be multiplied by the estimated BMI. [facility] CHEM PANEL POC Creatinine 0.8 mg/dL 0.5 - 1.4 08/15/2016 [facility] Liver Protocol w/wo IV contrast CT [facility] Liver Protocol w/wo IV contrast CT Clinical Indication: Cirrhosis, irritable bowel syndrome, nausea; Comparison: CT of the abdomen and pelvis 06/11/2007, CT abdomen and pelvis 02/26/2013 TECHNIQUE: Sequential trans-axial images were obtained with a multi-detector helical CT before and after administration of iodinated contrast. Coronal and sagittal reconstructions were obtained. 100 mL of omnipaque contrast material was used for the exam. 25 mL Omnipaque oral contrast material was used for the exam. CT Radiation Dose DLP 5021 mGy-cm FINDINGS: Lower thorax: 3 mm nodule in the left lower lobe (series 9 image 6). Coronary artery calcifications. Hepatobiliary: No focal hepatic lesion. No biliary ductal dilatation. Hepatic steatosis. Nodular liver contour. Pancreas: No focal mass or ductal dilatation. Spleen: Spinal megaly, spleen measures up to 16 cm in length. Adrenals: A 2.6 cm right adrenal nodule with density slightly higher than expected for a lipid rich adenoma. Kidneys: No hydronephrosis. 6 mm 94 right renal calculi. The noncontrast enhanced images of the abdomen show no renal calculi or calcified abdominal masses. Peritoneum/Retroperitoneum: Scattered mesenteric stranding and subcentimeter lymph nodes, unchanged and nonspecific. Slightly prominent retroperitoneal lymph nodes, which have decreased in size since 06/11/2007 and are unchanged from most recent exam. Lymph nodes: No lymphadenopathy. Vessels: Unremarkable. Portal vein is patent. Bowel: No significant bowel thickening or dilatation. The appendix is visualized and appears unremarkable. Bones and soft tissues: Unchanged compression fracture of L4 with vertebroplasty cement. Vertebroplasty cement also in T7 and T8. Multilevel degenerative changes. IMPRESSION: 1. No acute abnormalities of the abdomen or pelvis. 2. Hepatic steatosis and cirrhotic liver morphology. Stable splenomegaly. No suspicious liver lesions. 2. A 3 mm left lower lobe nodule. If patient is at increased risk for lung cancer, recommend a follow-up chest CT in one year. 3. Several nonobstructing right renal calculi measure up to 6 mm. 4. A 2.6 cm right adrenal nodule, decreased in size since 06/11/2007. SL: [id number] 08/15/2016 - - Read by: Juan Kurtz MD Dictated Date/time: 08/15/16 16:28 Electronically Signed by: Juan Kurtz MD 08/15/16 16:50 FINAL REPORT [facility] CHEM PANEL A/G Ratio 0.8 0.7 - 1.6 04/19/2016 [facility] CHEM PANEL Bili Indirect 0.4 mg/dL 0.0 - 1.0 04/19/2016 [facility] CHEM PANEL Globulin 4.1 g/dL 2.7 - 4.2 04/19/2016 [facility] CHEM PANEL Alk Phos 80 unit/L 39 - 136 04/19/2016 [facility] CHEM PANEL AST 39 unit/L 0 - 37 04/19/2016 [facility] CHEM PANEL Bili Total 0.6 mg/dL 0.2 - 1.3 04/19/2016 [facility] CHEM PANEL Bili Direct 0.2 mg/dL 0.0 - 0.3 04/19/2016 [facility] CHEM PANEL Albumin Lvl 3.3 g/dL 3.5 - 5.0 04/19/2016 [facility] CHEM PANEL ALT 56 unit/L 0 - 65 04/19/2016 [facility] CHEM PANEL Total Protein 7.4 g/dL 6.4 - 8.4 04/19/2016 [facility] ELECTROLYTES AGAP 1.7 meq/L 10.0 - 20.0 04/19/2016 [facility] ELECTROLYTES eGFR 52 mL/min/1.73m2 04/19/2016 Result Comment: The eGFR is calculated using the CKD-EPI formula. In most young, healthy individuals the eGFR will be >90 mL/min/1.73m2. The eGFR declines with age. An eGFR of 60-89 may be normal in some populations, particularly the elderly, for whom the CKD-EPI formula has not been extensively validated. Use of the eGFR is not recommended in the following populations: Individuals with unstable creatinine concentrations, including patients and those with serious co-morbid conditions. Patients with extremes in muscle mass or diet. The data above are obtained from the National Kidney Disease Education Program (NKDEP) which additionally recommends that when the eGFR is used in patients with extremes of body mass index for purposes of drug dosing, the eGFR should be multiplied by the estimated BMI. [facility] ELECTROLYTES Calcium Lvl 8.9 mg/dL 8.5 - 10.5 04/19/2016 [facility] ELECTROLYTES Creatinine Lvl 1.10 mg/dL 0.50 - 1.40 04/19/2016 [facility] ELECTROLYTES Sodium Lvl 140 meq/L 135 - 145 04/19/2016 [facility] ELECTROLYTES CO2 36 meq/L 24 - 32 04/19/2016 [facility] ELECTROLYTES Potassium Lvl 3.7 meq/L 3.5 - 5.1 04/19/2016 [facility] ELECTROLYTES Chloride Lvl 106 meq/L 95 - 109 04/19/2016 [facility] ELECTROLYTES BUN 18 mg/dL 7 - 22 04/19/2016 [facility] ELECTROLYTES Glucose Lvl 163 mg/dL 70 - 99 04/19/2016 [facility] HEMATOLOGY Platelet 79 K/CMM 133 - 450 04/19/2016 [facility] PTT 24.8 s 22.9 - 35.8 04/19/2016 [facility] PT 13.4 s 12.0 - 14.7 04/19/2016 [facility] INR 0.99 0.85 - 1.17 04/19/2016 [facility] WBC 4.3 K/CMM 3.7 - 10.4 04/19/2016 [facility] Retic Auto 2.7 % 0.5 - 1.5 12/10/2015 [facility] MPV 8.7 fL 7.4 - 10.4 12/10/2015 [facility] RDW 16.3 % 11.5 - 14.5 12/10/2015 [facility] MCHC 32.0 g/dL 32.0 - 36.0 12/10/2015 [facility] Platelet 74 K/CMM 133 - 450 12/10/2015 [facility] RBC 4.32 M/CMM 4.20 - 5.40 12/10/2015 [facility] WBC 3.7 K/CMM 3.7 - 10.4 12/10/2015 [facility] MCH 27.6 pg 27.0 - 31.0 12/10/2015 [facility] Hct 37.3 % 36.0 - 48.0 12/10/2015 [facility] MCV 86.3 fL 80.0 - 98.0 12/10/2015 [facility] Hgb 11.9 g/dL 12.0 - 16.0 12/10/2015 [facility] Plt Morph Normal (12/10/15 1:30 PM) 12/10/2015 [facility] Lymphocytes 38.0 % 20.0 - 40.0 12/10/2015 [facility] RBC Morph Normal (12/10/15 1:30 PM) 12/10/2015 [facility] Atypical Lymphs 3.0 % <=0.0 % 12/10/2015 [facility] Monocytes 7.0 % 2.0 - 12.0 12/10/2015 [facility] Tot Cell Ct 100 12/10/2015 [facility] Segs 51.0 % 45.0 - 75.0 12/10/2015 [facility] Bands 1.0 % 0.0 - 11.0 12/10/2015 [facility] Monocytes # 0.3 K/CMM 0.0 - 0.8 12/10/2015 [facility] Lymphocytes # 1.5 K/CMM 1.0 - 5.5 12/10/2015 [facility] Segs-Bands # 1.9 K/CMM 1.5 - 8.1 12/10/2015 [facility] Bone Marrow Biopsy or Trocar (VR) Bone Marrow Biopsy or Trocar (VR) Clinical Indication: D64.9 Anemia, unspecified,; Comparison: None Procedure: Bone marrow aspirate, core bone biopsy. Fluoroscopic guidance. 11-gauge needle was advanced into the left posterior iliac crest marrow space with fluoroscopic visualization, guidance. Hard copy fluoroscopic image recorded. 6 mL of marrow were aspirated. 11-gauge iliac bone core bone biopsy. Intravenous conscious sedation. Patient received 4 mg Versed and 150 mg fentanyl intravenously. Total physician-patient [id number] sedation monitoring was 11 minutes. Procedure well-tolerated. SL: [id number] 12/10/2015 - - Read by: Iggy Hitchcock MD Dictated Date/time: 12/10/15 16:31 Electronically Signed by: Iggy Hitchcock MD 12/10/15 16:33 FINAL REPORT [facility] BLOOD [facility] RESULTS RBC product Product available (06/18/15 2:05 PM) 06/18/2015 [facility] BLOOD BANK RESULTS Antibody Scrn Negative (06/18/15 2:05 PM) 06/18/2015 [facility] BLOOD BANK RESULTS ABO/Rh A POS 06/18/2015 [facility] CHEM PANEL eGFR 36 mL/min/1.73m2 06/18/2015 Result Comment: The eGFR is calculated using the CKD-EPI formula. In most young, healthy individuals the eGFR will be >90 mL/min/1.73m2. The eGFR declines with age. An eGFR of 60-89 may be normal in some populations, particularly the elderly, for whom the CKD-EPI formula has not been extensively validated. Use of the eGFR is not recommended in the following populations: Individuals with unstable creatinine concentrations, including patients and those with serious co-morbid conditions. Patients with extremes in muscle mass or diet. The data above are obtained from the National Kidney Disease Education Program (NKDEP) which additionally recommends that when the eGFR is used in patients with extremes of body mass index for purposes of drug dosing, the eGFR should be multiplied by the estimated BMI. [facility] CHEM PANEL Potassium Lvl 3.8 meq/L 3.5 - 5.1 06/18/2015 [facility] CHEM PANEL Chloride Lvl 102 meq/L 95 - 109 06/18/2015 [facility] CHEM PANEL Calcium Lvl 9.3 mg/dL 8.5 - 10.5 06/18/2015 [facility] CHEM PANEL Glucose Lvl 156 mg/dL 70 - 99 06/18/2015 [facility] CHEM PANEL ALT 26 unit/L 0 - 65 06/18/2015 [facility] CHEM PANEL AST 24 unit/L 0 - 37 06/18/2015 [facility] CHEM PANEL Albumin Lvl 3.2 g/dL 3.5 - 5.0 06/18/2015 [facility] CHEM PANEL CO2 27 meq/L 24 - 32 06/18/2015 [facility] CHEM PANEL BUN 17 mg/dL 7 - 22 06/18/2015 [facility] CHEM PANEL Total Protein 7.5 g/dL 6.4 - 8.4 06/18/2015 [facility] CHEM PANEL Bili Total 0.4 mg/dL 0.2 - 1.3 06/18/2015 [facility] CHEM PANEL Alk Phos 50 unit/L 39 - 136 06/18/2015 [facility] CHEM PANEL Sodium Lvl 136 meq/L 135 - 145 06/18/2015 [facility] CHEM PANEL Creatinine Lvl 1.5 mg/dL 0.5 - 1.4 06/18/2015 [facility] CHEM PANEL AGAP 10.8 meq/L 10.0 - 20.0 06/18/2015 [facility] CHEM PANEL B/C Ratio 11 6 - 25 06/18/2015 [facility] CHEM PANEL Globulin 4.3 g/dL 2.0 - 4.0 06/18/2015 [facility] CHEM PANEL A/G Ratio 0.7 0.7 - 1.6 06/18/2015 [facility] HEMATOLOGY Monocytes # 0.3 K/CMM 0.0 - 0.8 06/18/2015 [facility] HEMATOLOGY Lymphocytes # 0.7 K/CMM 1.0 - 5.5 06/18/2015 [facility] HEMATOLOGY Eosinophils 2.8 % 0.0 - 4.0 06/18/2015 [facility] HEMATOLOGY Basophils 0.4 % 0.0 - 1.0 06/18/2015 [facility] HEMATOLOGY Segs-Bands # 3.8 K/CMM 1.5 - 8.1 06/18/2015 [facility] HEMATOLOGY Eosinophils # 0.1 K/CMM 0.0 - 0.5 06/18/2015 [facility] HEMATOLOGY Microcyte 1+ *ABN* (06/18/15 2:05 PM) None Seen 06/18/2015 [facility] HEMATOLOGY Segs 76.5 % 45.0 - 75.0 06/18/2015 [facility] HEMATOLOGY Lymphocytes 13.6 % 20.0 - 40.0 06/18/2015 [facility] HEMATOLOGY Monocytes 6.7 % 2.0 - 12.0 06/18/2015 [facility] HEMATOLOGY MCV 74.0 fL 80.0 - 98.0 06/18/2015 [facility] HEMATOLOGY RDW 18.7 % 11.5 - 14.5 06/18/2015 [facility] HEMATOLOGY MPV 8.8 fL 7.4 - 10.4 06/18/2015 [facility] HEMATOLOGY Platelet 131 K/CMM 133 - 450 06/18/2015 [facility] HEMATOLOGY MCHC 30.2 g/dL 32.0 - 36.0 06/18/2015 [facility] HEMATOLOGY MCH 22.3 pg 27.0 - 31.0 06/18/2015 [facility] HEMATOLOGY Hct 28.8 % 36.0 - 48.0 06/18/2015 [facility] HEMATOLOGY Hgb 8.7 g/dL 12.0 - 16.0 06/18/2015 [facility] HEMATOLOGY RBC 3.89 M/CMM 4.20 - 5.40 06/18/2015 [facility] HEMATOLOGY WBC 5.0 K/CMM 3.7 - 10.4 06/18/2015 [facility] Abdomen complete US Abdomen complete US Exam: Abdomen ultrasound. History: abdominal pain Comparison: None. Findings: Sonographic evaluation of the abdomen was performed. The liver is echogenic and enlarged. The liver measures 21.4 cm. The spleen measures 17.8 x 6.1 x 5.7 cm. The pancreas is normal in appearance. The visualized portions of the abdominal aorta and IVC are normal. The patient is status post cholecystectomy. There is no biliary ductal dilatation. The common bile duct measures 6 mm. The kidneys are normal in echotexture and size without hydronephrosis or echogenic stone. The right kidney measures 12 x 5.3 x 4.9 cm and the left kidney measures 12.9 x 5.3 x 5.9 cm. No free fluid is noted in Olea's pouch. The main portal vein is patent with hepatopedal flow. Impression: 1. Hepatosplenomegaly. 2. Status post cholecystectomy. SL: 13 01/12/2014 - - Read by: Jaspal Parkinson MD Dictated Date/time: 01/12/14 13:35 Electronically Signed by: Jaspal Parkinson MD 01/12/14 13:39 FINAL REPORT [facility] Vital Signs Vital Sign Value Date Comments Source Respitory Rate 20 04/26/2016 [facility] Heart Rate 80 04/26/2016 [facility] Systolic (mm Hg) 168 04/26/2016 [facility] Diastolic (mm Hg) 75 04/26/2016 [facility] Respitory Rate 18 04/19/2016 [facility] Systolic (mm Hg) 130 04/19/2016 [facility] Diastolic (mm Hg) 54 04/19/2016 [facility] Heart Rate 63 04/19/2016 [facility] Temperature Oral (F) 98.0 F 04/19/2016 [facility] Height 160.02 cm 04/19/2016 [facility] Weight 119.727 04/19/2016 [facility] BMI Calculated 46.76 04/19/2016 [facility] Weight 109.091 12/10/2015 [facility] BMI Calculated 42.6 12/10/2015 [facility] Height 160.02 cm 12/10/2015 [facility] Heart Rate 85 09/23/2015 [facility] Temperature Oral (F) 98.8 F 09/23/2015 [facility] Systolic (mm Hg) 134 09/23/2015 [facility] Diastolic (mm Hg) 72 09/23/2015 [facility] Respitory Rate 18 09/23/2015 [facility] Heart Rate 88 09/23/2015 [facility] Temperature Oral (F) 98.9 F 09/23/2015 [facility] Respitory Rate 20 09/23/2015 [facility] Systolic (mm Hg) 153 09/23/2015 [facility] Diastolic (mm Hg) 67 09/23/2015 [facility] Systolic (mm Hg) 158 09/17/2015 [facility] Diastolic (mm Hg) 73 09/17/2015 [facility] Heart Rate 78 09/17/2015 [facility] Heart Rate 75 09/17/2015 [facility] Temperature Oral (F) 97.8 F 09/17/2015 [facility] Systolic (mm Hg) 160 09/17/2015 [facility] Diastolic (mm Hg) 80 09/17/2015 [facility] Respitory Rate 19 09/13/2015 [facility] Systolic (mm Hg) 142 09/13/2015 [facility] Diastolic (mm Hg) 72 09/13/2015 [facility] Heart Rate 89 09/13/2015 [facility] Temperature Oral (F) 98.9 F 09/13/2015 [facility] Respitory Rate 20 09/13/2015 [facility] Respitory Rate 18 09/13/2015 [facility] Temperature Oral (F) 99.1 F 09/13/2015 [facility] Weight 110.455 08/26/2015 [facility] Height 160.02 cm 08/26/2015 [facility] BMI Calculated 43.14 08/26/2015 [facility] Respitory Rate 20 06/21/2015 [facility] Systolic (mm Hg) 122 06/21/2015 [facility] Diastolic (mm Hg) 63 06/21/2015 [facility] Heart Rate 81 06/21/2015 [facility] Temperature Oral (F) 98.9 F 06/21/2015 [facility] Heart Rate 80 06/21/2015 [facility] Systolic (mm Hg) 142 06/21/2015 [facility] Diastolic (mm Hg) 53 06/21/2015 [facility] Respitory Rate 20 06/21/2015 [facility] Respitory Rate 19 06/21/2015 [facility] Heart Rate 81 06/21/2015 [facility] Systolic (mm Hg) 124 06/21/2015 [facility] Diastolic (mm Hg) 49 06/21/2015 [facility] Weight 98.1 06/21/2015 [facility] BMI Calculated 37.15 06/21/2015 [facility] Height 162.5 cm 06/21/2015 [facility] Encounters Location Location Details Encounter Type Encounter Number Reason For Visit Attending Provider ADM Date DC Date Status Source [facility] Outpatient [id number] Trevin Maravillapta 01/12/2014 01/13/2014 [facility] OP Recurring [id number] Dheeraj Francis 06/18/2015 07/18/2015 [facility] OP Recurring [id number] Maxx Toño 08/30/2015 09/29/2015 [facility] OP Recurring [id number] Joselinba Toño 09/23/2015 10/23/2015 [facility] Outpatient [id number] Joselinba Toño 12/10/2015 12/11/2015 [facility] Bedded Outpatient [id number] Sri Hector Lina 04/26/2016 04/26/2016 [facility] Outpatient [id number] Sri Hector Lina 08/15/2016 08/16/2016 [facility] Outpatient [id number] Trevin Torre 10/05/2016 10/06/2016 [facility] Outpatient [id number] Joanne Khalif 10/25/2016 10/26/2016 [facility] Outpatient [id number] Joanne Khalif 11/24/2016 11/25/2016 [facility] [place] [facility] [id number] Baseclau Hammila 01/19/2017 01/20/2017 [facility] [place] [facility] [place] [facility] [id number] Pricila Steiner 03/22/2017 [facility] [id number] Sahba Toño 03/24/2017 03/25/2017 [facility] Outpatient [id number] Joanne Khalif 06/26/2017 06/27/2017 [facility] Outpatient [id number] JOANNE KHALIF 08/14/2018 [facility] Outpatient [id number] NURSE VISIT 09/18/2018 Active [facility] Outpatient [id number] JOANNE KHALIF 09/25/2018 Active [facility] Procedures Procedure Code Date Perfomer Comments Source Bone marrow aspirate examination<sup>1</sup> [id number] 04/03/2015 total of 8 bone marrow biopsies [facility] Bone marrow aspirate examination<sup>1</sup> [id number] 04/03/2015 total of 8 bone marrow biopsies [facility] [place] Abdominal hysterectomy [id number] [facility] Appendectomy [id number] [facility] Blood transfusion [id number] [facility] Chemotherapy [id number] [facility] Cholecystectomy [id number] [facility] Colonoscopy [id number] [facility] Esophagogastroduodenoscopy [id number] [facility] Knee arthroplasty [id number] [facility] Lobectomy of thyroid gland [id number] [facility] Abdominal hysterectomy [id number] [facility] [place] Appendectomy [id number] [facility] [place] Blood transfusion [id number] [facility] [place] Chemotherapy [id number] [facility] [place] Cholecystectomy [id number] [facility] [place] Colonoscopy [id number] [facility] [place] Esophagogastroduodenoscopy [id number] [facility] [place] Knee arthroplasty [id number] [facility] [place] Lobectomy of thyroid gland [id number] [facility] [place]
--- OUTSIDE RECORDS SUMMARY | 2018-09-17 06:17 | XMS REPORT | Summary of Care ---
Author Author [facility] Organization [facility] Address Unknown Phone Unavailable Encounter DUNIA Zaldivar(YVES) [id number] Date(s): 06/18/15 - 07/17/15 [facility] [address] [place] [address]- [phone] Discharge Disposition: Home Attending Physician: Dheeraj Francis MD Referring Physician: Dheeraj Francis MD Vital Signs 1 2 3 Most recent to oldest [Reference Range]: 162.5 cm (06/21/15 9:51 AM) Height 98.9 DegF 1 (06/21/15 12:30 PM) Temperature Oral [96.4-99.1 DegF] 122/63 mmHg (06/21/15 2:30 PM) 142/53 mmHg *HI* (06/21/15 12:30 PM) 124/49 mmHg (06/21/15 10:05 AM) Blood Pressure [90-140/60-90 mmHg] 20 BRMIN (06/21/15 2:30 PM) 20 BRMIN (06/21/15 12:30 PM) 19 BRMIN (06/21/15 10:05 AM) Respiratory Rate [14-20 BRMIN] 81 bpm (06/21/15 2:30 PM) 80 bpm (06/21/15 12:30 PM) 81 bpm (06/21/15 10:05 AM) Peripheral Pulse Rate [60-100 bpm] 98.1 kg (06/21/15 9:51 AM) Weight 37.15 m2 (06/21/15 9:51 AM) Body Mass Index 1Result Comment: Pt has been eating ice all day long, temps have not been working either under arm or under tongue. Ice removed from pt for 15 min so temp could be taken but its removal appeared to make the pt very anxious and was returned. Problem List Condition Effective Dates Status Health Status Informant Abdominal Resolved pain(Confirmed) Anemia(Confirmed) Resolved Back pain(Confirmed) Resolved Breast Resolved cancer(Confirmed) CHF (congestive Resolved heart failure)(Confirmed) Chronic Resolved sinusitis(Confirmed) COPD(Confirmed) Resolved COPD(Confirmed) Active Diabetes Active mellitus(Confirmed) dm(Confirmed) Active Gastroesophageal Resolved reflux disease(Confirmed) GERD - Active Gastro-esophageal reflux disease(Confirmed) GI Resolved bleeding(Confirmed) Hernia(Confirmed) Resolved Hypothyroidism(Confi Resolved rmed) Influenza(Confirmed) Resolved Iron deficiency Resolved anemia(Confirmed) Lymphoma(Confirmed) Active MRSA Resolved infection(Confirmed) Myocardial Resolved infarction(Confirmed ) Non-Hodgkins Resolved lymphoma(Confirmed) Obesity(Confirmed) Resolved Pneumonia(Confirmed) Active Sleep Resolved apnea(Confirmed) Sleep Active apnea(Confirmed) Thyroid Resolved cancer(Confirmed) Allergies, Adverse Reactions, Alerts Substance Reaction Severity Status penicillin Active PLASTIC TAPE Active Medications Lasix 20 mg, 2 mL, Route: IV, Drug form: INJ, ONCALL, Start date: 06/21/15 10:30:00, D uration: 1 doses or times Notes: (Same as: Lasix) Start Date: 06/21/15 Status: Ordered Sodium Chloride 0.9% IV IV, 30 ml/hr, ONCALL, Start date: 06/21/15 10:00:00, Duration: 1, 250 ml Start Date: 06/21/15 Stop Date: 06/22/15 Status: Ordered Results BLOOD BANK RESULTS Most recent to 1 oldest [Reference Range]: ABO/Rh A POS *Unknown* (06/18/15 2:05 PM) Antibody Scrn Negative (06/18/15 2:05 PM) RBC product Product available (06/18/15 2:05 PM) ELECTROLYTES Most recent to 1 oldest [Reference Range]: Sodium Lvl [135-145 136 mEq/L mEq/L] (06/18/15 2:05 PM) Potassium Lvl 3.8 mEq/L [3.5-5.1 mEq/L] (06/18/15 2:05 PM) Chloride Lvl [95-109 102 mEq/L mEq/L] (06/18/15 2:05 PM) CO2 [24-32 mEq/L] 27 mEq/L (06/18/15 2:05 PM) AGAP [10.0-20.0 10.8 mEq/L mEq/L] (06/18/15 2:05 PM) CHEM PANEL Most recent to 1 oldest [Reference Range]: Creatinine Lvl 1.5 mg/dL [0.5-1.4 mg/dL] *HI* (06/18/15 2:05 PM) eGFR 36 mL/min/1.73m2 1 *NA* (06/18/15 2:05 PM) BUN [7-22 mg/dL] 17 mg/dL (06/18/15 2:05 PM) B/C Ratio [6-25] 11 (06/18/15 2:05 PM) Glucose Lvl [70-99 156 mg/dL mg/dL] *HI* (06/18/15 2:05 PM) Total Protein 7.5 g/dL [6.4-8.4 g/dL] (06/18/15 2:05 PM) Albumin Lvl [3.5-5.0 3.2 g/dL g/dL] *LOW* (06/18/15 2:05 PM) Globulin [2.0-4.0 4.3 g/dL g/dL] *HI* (06/18/15 2:05 PM) A/G Ratio [0.7-1.6] 0.7 (06/18/15 2:05 PM) Calcium Lvl 9.3 mg/dL [8.5-10.5 mg/dL] (06/18/15 2:05 PM) ALT [0-65 unit/L] 26 unit/L (06/18/15 2:05 PM) AST [0-37 unit/L] 24 unit/L (06/18/15 2:05 PM) Alk Phos [39-136 50 unit/L unit/L] (06/18/15 2:05 PM) Bili Total [0.2-1.3 0.4 mg/dL mg/dL] (06/18/15 2:05 PM) 1Result Comment: The eGFR is calculated using the [...] from the National Kidney Disease Education Program ( NKDEP) which additionally recommends that when the eGFR is used in patients with extremes of body mass index for purposes of drug dosing, the eGFR should be mul tiplied by the estimated BMI. HEMATOLOGY Most recent to 1 oldest [Reference Range]: WBC [3.7-10.4 K/CMM] 5.0 K/CMM (06/18/15 2:05 PM) RBC [4.20-5.40 3.89 M/CMM M/CMM] *LOW* (06/18/15 2:05 PM) Hgb [12.0-16.0 g/dL] 8.7 g/dL *LOW* (06/18/15 2:05 PM) Hct [36.0-48.0 %] 28.8 % *LOW* (06/18/15 2:05 PM) MCV [80.0-98.0 fL] 74.0 fL *LOW* (06/18/15 2:05 PM) MCH [27.0-31.0 pg] 22.3 pg *LOW* (06/18/15 2:05 PM) MCHC [32.0-36.0 30.2 g/dL g/dL] *LOW* (06/18/15 2:05 PM) RDW [11.5-14.5 %] 18.7 % *HI* (06/18/15 2:05 PM) Platelet [133-450 131 K/CMM K/CMM] *LOW* (06/18/15 2:05 PM) MPV [7.4-10.4 fL] 8.8 fL (06/18/15 2:05 PM) Segs [45.0-75.0 %] 76.5 % *HI* (06/18/15 2:05 PM) Lymphocytes 13.6 % [20.0-40.0 %] *LOW* (06/18/15 2:05 PM) Monocytes [2.0-12.0 6.7 % %] (06/18/15 2:05 PM) Eosinophils [0.0-4.0 2.8 % %] (06/18/15 2:05 PM) Basophils [0.0-1.0 0.4 % %] (06/18/15 2:05 PM) Segs-Bands # 3.8 K/CMM [1.5-8.1 K/CMM] (06/18/15 2:05 PM) Lymphocytes # 0.7 K/CMM [1.0-5.5 K/CMM] *LOW* (06/18/15 2:05 PM) Monocytes # [0.0-0.8 0.3 K/CMM K/CMM] (06/18/15 2:05 PM) Eosinophils # 0.1 K/CMM [0.0-0.5 K/CMM] (06/18/15 2:05 PM) Microcyte [None 1+ Seen] *ABN* (06/18/15 2:05 PM) Immunizations No data available for this section Procedures Procedure Date Related Diagnosis Body Site Abdominal hysterectomy Appendectomy Blood transfusion Chemotherapy Cholecystectomy Knee arthroplasty Lobectomy of thyroid gland Social History Social History Type Response Smoking Status Never smoker; Type: Cigarettes; Exposure to Tobacco Smoke None; Cigarette Smoking Last 365 Days No; Reg Smoking Cessation Counseling No Assessment and Plan No data available for this section
--- OUTSIDE RECORDS SUMMARY | 2018-09-17 06:17 | XMS REPORT | Summary of Care ---
Author Author [facility] Organization [facility] Address Unknown Phone Unavailable Encounter [facility](FIN) [id number] Date(s): 08/30/15 - 09/28/[address] [facility] [address] [place] [address]- Discharge Disposition: Home Attending Physician: Maxx Lundberg MD Referring Physician: Maxx Lundberg MD Vital Signs 1 2 3 Most recent to oldest [Reference Range]: 160.02 cm (08/25/15 7:18 PM) Height 97.8 DegF (09/17/15 1:23 PM) 98.9 DegF (09/13/15 4:15 PM) 99.1 DegF (09/13/15 1:45 PM) Temperature Oral [96.4-99.1 DegF] 158/73 mmHg *HI* (09/17/15 3:27 PM) 160/80 mmHg *HI* (09/17/15 1:23 PM) 142/72 mmHg *HI* (09/13/15 4:15 PM) Blood Pressure [90-140/60-90 mmHg] 19 BRMIN (09/13/15 4:15 PM) 20 BRMIN (09/13/15 3:00 PM) 18 BRMIN (09/13/15 1:45 PM) Respiratory Rate [14-20 BRMIN] 78 bpm (09/17/15 3:27 PM) 75 bpm (09/17/15 1:23 PM) 89 bpm (09/13/15 4:15 PM) Peripheral Pulse Rate [60-100 bpm] 110.455 kg (08/25/15 7:18 PM) Weight 43.14 m2 (08/25/15 7:18 PM) Body Mass Index Problem List Condition Effective Dates Status Health [...] Status penicillin Active PLASTIC TAPE Active Medications acetaminophen 500 mg, 1 tab, Route: PO, Drug form: TAB, Q8H, PRN Other -See Comment, Start bo e: 08/30/15 12:00:00, Duration: 72 hr, Stop date: 09/02/15 11:59:00 Notes: Max acetaminophen 4000 mg/day (4 gm/day). (Same as: Tylenol Extra Streng ) Start Date: 08/30/15 Stop Date: 09/02/15 Status: Completed acetaminophen 500 mg, 1 tab, Route: PO, Drug form: TAB, Q8H, PRN Other -See Comment, Start bo e: 09/13/15 13:48:00, Duration: 72 hr, Stop date: 09/16/15 13:47:00 Notes: Max acetaminophen 4000 mg/day (4 gm/day). (Same as: Tylenol Extra Streng th) Start Date: 09/13/15 Stop Date: 09/16/15 Status: Completed acetaminophen 500 mg, 1 tab, Route: PO, Drug form: TAB, Q8H, PRN Other -See Comment, Start bo e: 09/06/15 12:00:00, Duration: 72 hr, Stop date: 09/09/15 11:59:00 Notes: Max acetaminophen 4000 mg/day (4 gm/day). (Same as: Tylenol Extra Streng th) Start Date: 09/06/15 Stop Date: 09/09/15 Status: Completed acetaminophen 500 mg, 1 tab, Route: PO, Drug form: TAB, Q8H, PRN Other -See Comment, Start bo e: 09/17/15 12:00:00, Duration: 72 hr, Stop date: 09/20/15 11:59:00 Notes: Max acetaminophen 4000 mg/day (4 gm/day). (Same as: Tylenol Extra Streng th) Start Date: 09/17/15 Stop Date: 09/20/15 Status: Completed Benadryl 25 mg, 1 tab, Route: PO, Drug form: TAB, Q6H, PRN Itching, Start date: 09/17/15 12:00:00, Duration: 48 hr, Stop date: 09/19/15 11:59:00 Start Date: 09/17/15 Stop Date: 09/19/15 Status: Completed Benadryl 25 mg, 1 tab, Route: PO, Drug form: TAB, Q6H, PRN Itching, Start date: 09/13/15 20:00:00, Duration: 48 hr, Stop date: 09/15/15 19:59:00 Start Date: 09/13/15 Stop Date: 09/15/15 Status: Completed Benadryl 50 mg, 1 mL, Route: IVP, Drug form: INJ, ONCALL, Start date: 09/06/15 12:00:00, Duration: 12 hr, Stop date: 09/06/15 23:59:00 Notes: (Same as: Benadryl) Start Date: 09/06/15 Stop Date: 09/06/15 Status: Completed Benadryl 50 mg, 1 mL, Route: IVP, Drug form: INJ, ONCALL, Start date: 08/30/15 12:00:00, Duration: 12 hr, Stop date: 08/30/15 23:59:00 Notes: (Same as: Benadryl) Start Date: 08/30/15 Stop Date: 08/30/15 Status: Completed Benadryl 25 mg, 1 tab, Route: PO, Drug form: TAB, Q6H, PRN Itching, Start date: 09/06/15 12:00:00, Duration: 48 hr, Stop date: 09/08/15 11:59:00 Start Date: 09/06/15 Stop Date: 09/08/15 Status: Completed Benadryl 25 mg, 1 tab, Route: PO, Drug form: TAB, Q6H, PRN Itching, Start date: 08/30/15 18:00:00, Duration: 48 hr, Stop date: 09/01/15 17:59:00 Start Date: 08/30/15 Stop Date: 09/01/15 Status: Completed Benadryl 50 mg, 1 mL, Route: IVP, Drug form: INJ, ONCALL, Start date: 09/13/15 14:00:00, Duration: 12 hr, Stop date: 09/14/15 1:59:00 Notes: (Same as: Benadryl) Start Date: 09/13/15 Stop Date: 09/13/15 Status: Completed Benadryl + Sodium Chloride 0.9% IV 50 mL 50 mg, 1 mL, Route: IVPB, Drug form: INJ, ONCALL, Start date: 09/17/15 12:00:00, Duration: 1 doses or times Notes: (Same as: Benadryl) Start Date: 09/17/15 Status: Ordered methylPREDNISolone 100 mg, 1.6 mL, Route: IV, Drug form: INJ, ONCALL, Start date: 08/30/15 12:00:00 , Duration: 12 hr, Stop date: 08/30/15 23:59:00 Notes: (Same as:Solu-MEDROL, A-Methapred) Start Date: 08/30/15 Stop Date: 08/30/15 Status: Completed methylPREDNISolone 100 mg, 1.6 mL, Route: IV, Drug form: INJ, ONCALL, Start date: 09/13/15 14:00:00 , Duration: 12 hr, Stop date: 09/14/15 1:59:00 Notes: (Same as:Solu-MEDROL, A-Methapred) Start Date: 09/13/15 Stop Date: 09/13/15 Status: Completed methylPREDNISolone 100 mg, 1.6 mL, Route: IV, Drug form: INJ, ONCALL, Start date: 09/06/15 11:00:00 , Duration: 12 hr, Stop date: 09/06/15 22:59:00 Notes: (Same as:Solu-MEDROL, A-Methapred) Start Date: 09/06/15 Stop Date: 09/06/15 Status: Completed methylPREDNISolone 100 mg, 1.6 mL, Route: IV, Drug form: INJ, ONCALL, Start date: 09/17/15 12:00:00 , Duration: 12 hr, Stop date: 09/17/15 23:59:00 Notes: (Same as:Solu-MEDROL, A-Methapred) Start Date: 09/17/15 Stop Date: 09/17/15 Status: Ordered Venofer + Sodium Chloride 0.9% IV 235 mL 300 mg, 15 mL, Route: IV, Drug form: INJ, ONCALL, Start date: 09/13/15 14:00:00, Duration: 12 hr, Stop date: 09/14/15 1:59:00 Notes: Each 5ml contains 100mg elemental iron. Mix with NS(Same as:Venofer)Admi nister IV only. MEDICATION WASTE Product Size: 100 mgProduct Wasted: _ __ mg Start Date: 09/13/15 Stop Date: 09/13/15 Status: Completed Venofer + Sodium Chloride 0.9% IV 235 mL 300 mg, 15 mL, Route: IV, Drug form: INJ, ONCALL, Start date: 08/30/15 12:00:00, Duration: 12 hr, Stop date: 08/30/15 23:59:00 Notes: Each 5ml contains 100mg elemental iron. Mix with NS(Same as:Venofer)Admi nister IV only. MEDICATION WASTE Product Size: 100 mgProduct Wasted: _ __ mg Start Date: 08/30/15 Stop Date: 08/30/15 Status: Completed Venofer + Sodium Chloride 0.9% IV 235 mL 300 mg, 15 mL, Route: IV, Drug form: INJ, ONCALL, Start date: 09/06/15 12:00:00, Duration: 12 hr, Stop date: 09/06/15 23:59:00 Notes: Each 5ml contains 100mg elemental iron. Mix with NS(Same as:Venofer)Admi nister IV only. MEDICATION WASTE Product Size: 100 mgProduct Wasted: _ __ mg Start Date: 09/06/15 Stop Date: 09/06/15 Status: Completed Venofer + Sodium Chloride 0.9% IV 235 mL 300 mg, 15 mL, Route: IV, Drug form: INJ, ONCALL, Start date: 09/17/15 12:00:00, Duration: 12 hr, Stop date: 09/17/15 23:59:00 Notes: Each 5ml contains 100mg elemental iron. Mix with NS(Same as:Venofer)Admi nister IV only. MEDICATION WASTE Product Size: 100 mgProduct Wasted: _ __ mg Start Date: 09/17/15 Stop Date: 09/17/15 Status: Completed Vitamin B12 1,000 microgram, 1 mL, Route: IM, Drug form: INJ, ONCALL, Start date: 08/31/15 1 2:00:00, Duration: 12 hr, Stop date: 08/31/15 23:59:00 Notes: (Same As: Vitamin B12) Start Date: 08/31/15 Stop Date: 08/31/15 Status: Ordered Vitamin B12 1,000 microgram, 1 mL, Route: IM, Drug form: INJ, ONCALL, Start date: 09/06/15 1 2:00:00, Duration: 12 hr, Stop date: 09/06/15 23:59:00 Notes: (Same As: Vitamin B12) Start Date: 09/06/15 Stop Date: 09/06/15 Status: Completed Results No data available for this section Immunizations No data available for this section [...]
--- OUTSIDE RECORDS SUMMARY | 2018-09-17 06:17 | XMS REPORT | Summary of Care ---
Author Author [facility] Organization [facility] Address Unknown Phone Unavailable Encounter [facility](YVES) [id number] Date(s): 09/23/15 - 10/22/15 [facility] [address] [place] [address]- [phone] Discharge Disposition: Home Attending Physician: Maxx Lundberg MD Admitting Physician: Maxx Lundberg MD Referring Physician: Maxx Lundberg MD Vital Signs Most recent to 1 2 oldest [Reference Range]: Temperature Oral 98.8 DegF 98.9 DegF [96.4-99.1 DegF] (09/23/15 2:50 PM) (09/23/15 12:45 PM) Blood Pressure 134/72 mmHg 153/67 mmHg [90-140/60-90 mmHg] (09/23/15 2:50 PM) *HI* (09/23/15 12:45 PM) Respiratory Rate 18 BRMIN 20 BRMIN [14-20 BRMIN] (09/23/15 2:50 PM) (09/23/15 12:45 PM) Peripheral Pulse 85 bpm 88 bpm Rate [60-100 bpm] (09/23/15 2:50 PM) (09/23/15 12:45 PM) Problem List Condition Effective Dates Status Health [...] PRN Other -See Comment, Start bo e: 09/23/15 12:00:00, Duration: 72 hr, Stop date: 09/26/15 11:59:00 Notes: Max acetaminophen 4000 mg/day (4 gm/day). (Same as: Tylenol Extra Streng th) Start Date: 09/23/15 Stop Date: 09/26/15 Status: Completed Benadryl 25 mg, 1 tab, Route: PO, Drug form: TAB, Q6H, PRN Itching, Start date: 09/23/15 14:00:00, Duration: 48 hr, Stop date: 09/25/15 13:59:00 Start Date: 09/23/15 Stop Date: 09/25/15 Status: Completed Benadryl 50 mg, 1 mL, Route: IVP, Drug form: INJ, ONCALL, Start date: 09/23/15 8:00:00, D uration: 12 hr, Stop date: 09/23/15 19:59:00 Notes: (Same as: Benadryl) Start Date: 09/23/15 Stop Date: 09/23/15 Status: Ordered methylPREDNISolone 100 mg, 1.6 mL, Route: IV, Drug form: INJ, ONCALL, Start date: 09/23/15 9:00:00, Duration: 12 hr, Stop date: 09/23/15 20:59:00 Notes: (Same as:Solu-MEDROL, A-Methapred) Start Date: 09/23/15 Stop Date: 09/23/15 Status: Ordered Venofer + Sodium Chloride 0.9% IV 235 mL 300 mg, 15 mL, Route: IV, Drug form: INJ, ONCALL, Start date: 09/23/15 8:00:00, Duration: 12 hr, Stop date: 09/23/15 19:59:00 Notes: Each 5ml contains 100mg elemental iron. Mix with NS(Same as:Venofer)Admi nister IV only. MEDICATION WASTE Product Size: 100 mgProduct Wasted: _ __ mg Start Date: 09/23/15 Stop Date: 09/23/15 Status: Completed Vitamin B12 1,000 microgram, 1 mL, Route: IM, Drug form: INJ, ONCALL, Start date: 09/24/15 8 :00:00, Duration: 12 hr, Stop date: 09/24/15 19:59:00 Notes: (Same As: Vitamin B12) Start Date: 09/24/15 Stop Date: 09/24/15 Status: Ordered Results No data available for this section [...]
--- OUTSIDE RECORDS SUMMARY | 2018-09-17 06:17 | XMS REPORT | Summary of Care ---
Author Organization Unknown Address Unknown Phone Unavailable Encounter [facility](FIN) [id number] Date(s): 01/12/14 - 01/12/14 [facility] [address] Discharge Disposition: Home Physician Attending: Trevin Torre MD Physician_Referring: Trevin Torre MD Reason for Visit ABD PAIN Problem List Condition Effective Dates Status Health Status Informant Abdominal Resolved pain(Confirmed) Anemia(Confirmed) Resolved Back pain(Confirmed) Resolved Breast Resolved cancer(Confirmed) CHF (congestive Resolved heart failure)(Confirmed) Chronic Resolved sinusitis(Confirmed) COPD(Confirmed) Active Diabetes Active mellitus(Confirmed) dm(Confirmed) Active GERD - Active Gastro-esophageal reflux disease(Confirmed) GI Resolved bleeding(Confirmed) Hernia(Confirmed) Resolved Hypothyroidism(Confi Resolved rmed) Influenza(Confirmed) Resolved Lymphoma(Confirmed) Active MRSA Resolved infection(Confirmed) Pneumonia(Confirmed) Active Sleep Active apnea(Confirmed) Thyroid Resolved cancer(Confirmed) Allergies, Adverse Reactions, Alerts Substance Reaction Severity Status penicillin Active PLASTIC TAPE Active Medications No data available for this section Medications Administered During Your Visit No data available for this section Immunizations No data available for this section
--- OUTSIDE RECORDS SUMMARY | 2018-09-17 06:17 | XMS REPORT | Summary of Care ---
Author Author [facility] Organization [facility] Address Unknown Phone Unavailable Encounter [facility](YVES) [id number] Date(s): 04/26/16 - 04/26/16 [facility] [address] [place] [address]- Discharge Disposition: Home or Self Care Attending Physician: Lucie Mills MD Referring Physician: Lucie Mills MD Vital Signs Most recent to 1 2 oldest [Reference Range]: Height 160.02 cm (04/19/16 11:52 AM) Temperature Oral 98.0 DegF [96.4-99.1 DegF] (04/19/16 12:13 PM) Blood Pressure 168/75 mmHg 130/54 mmHg [90-140/60-90 mmHg] *HI* (04/19/16 12:13 PM) (04/26/16 9:54 AM) Respiratory Rate 20 BRMIN 18 BRMIN [14-20 BRMIN] (04/26/16 9:54 AM) (04/19/16 12:13 PM) Peripheral Pulse 80 bpm 63 bpm Rate [60-100 bpm] (04/26/16 9:54 AM) (04/19/16 12:13 PM) Weight 119.727 kg (04/19/16 11:52 AM) Body Mass Index 46.76 m2 (04/19/16 11:52 AM) Problem List Condition Effective Dates Status Health Status Informant Abdominal Resolved pain(Confirmed) Anemia(Confirmed) Resolved Back pain(Confirmed) Resolved Bone 09/03/06 Resolved cancer(Confirmed)1 Breast Resolved cancer(Confirmed) CHF (congestive Resolved heart [...] apnea(Confirmed) Sleep Active apnea(Confirmed) Thyroid Resolved cancer(Confirmed) Thyroid Resolved cancer(Confirmed) 1right side ribs Allergies, Adverse Reactions, Alerts Substance Reaction Severity Status penicillin Active PLASTIC TAPE Active Medications sodium chloride 0.9% 1000 ml INJ 1,000 mL 1,000 mL, Rate: 25 ml/hr, Infuse over: 40 hr, Route: IV, Dosing Weight 119.727 k g, Total Volume: 1,000, Start date: 04/26/16 10:02:00 CDT, Duration: 1 day, Stop date: 04/27/16 10:01:00 CDT Start Date: 04/26/16 Stop Date: 04/26/16 Status: Discontinued Results ELECTROLYTES Most recent to 1 oldest [Reference Range]: Sodium Lvl [135-145 140 mEq/L mEq/L] (04/19/16 12:09 PM) Potassium Lvl 3.7 mEq/L [3.5-5.1 mEq/L] (04/19/16 12:09 PM) Chloride Lvl [95-109 106 mEq/L mEq/L] (04/19/16 12:09 PM) CO2 [24-32 mEq/L] 36 mEq/L *HI* (04/19/16 12:09 PM) AGAP [10.0-20.0 1.7 mEq/L mEq/L] *LOW* (04/19/16 12:09 PM) CHEM PANEL Most recent to 1 oldest [Reference Range]: Creatinine Lvl 1.10 mg/dL [0.50-1.40 mg/dL] (04/19/16 12:09 PM) eGFR 52 mL/min/1.73m2 1 *NA* (04/19/16 12:09 PM) BUN [7-22 mg/dL] 18 mg/dL (04/19/16 12:09 PM) Glucose Lvl [70-99 163 mg/dL mg/dL] *HI* (04/19/16 12:09 PM) Total Protein 7.4 g/dL [6.4-8.4 g/dL] (04/19/16 12:09 PM) Albumin Lvl [3.5-5.0 3.3 g/dL g/dL] *LOW* (04/19/16 12:09 PM) Globulin [2.7-4.2 4.1 g/dL g/dL] (04/19/16 12:09 PM) A/G Ratio [0.7-1.6] 0.8 (04/19/16 12:09 PM) Calcium Lvl 8.9 mg/dL [8.5-10.5 mg/dL] (04/19/16 12:09 PM) ALT [0-65 unit/L] 56 unit/L (04/19/16:09 PM) AST [0-37 unit/L] 39 unit/L *HI* (04/19/16:09 PM) Alk Phos [39-136 80 unit/L unit/L] (04/19/16 12:09 PM) Bili Total [0.2-1.3 0.6 mg/dL mg/dL] (04/19/16 12:09 PM) Bili Direct [0.0-0.3 0.2 mg/dL mg/dL] (04/19/16 12:09 PM) Bili Indirect 0.4 mg/dL [0.0-1.0 mg/dL] (04/19/16 12:09 PM) 1Result Comment: The eGFR is calculated [...] 1 oldest [Reference Range]: WBC [3.7-10.4 K/CMM] 4.3 K/CMM (04/19/16 12:09 PM) Platelet [133-450 79 K/CMM K/CMM] *LOW* (04/19/16 12:09 PM) PT [12.0-14.7 13.4 seconds seconds] (04/19/16 12:09 PM) INR [0.85-1.17] 0.99 (04/19/16 12:09 PM) PTT [22.9-35.8 24.8 seconds seconds] (04/19/16 12:09 PM) Immunizations No data available for this section Procedures Procedure Date Related Diagnosis Body Site Bone marrow aspirate examination1 04/03/15 Abdominal hysterectomy Appendectomy Blood transfusion Chemotherapy Cholecystectomy Colonoscopy Esophagogastroduodenoscopy Knee arthroplasty Lobectomy of thyroid gland 1total of 8 bone marrow biopsies Social History Social History Type Response Smoking Status Never smoker; Type: Cigarettes; Exposure to Tobacco Smoke None; Cigarette Smoking Last 365 Days No; Reg Smoking Cessation Counseling No Assessment and Plan No data available for this section
--- OUTSIDE RECORDS SUMMARY | 2018-09-17 06:17 | XMS REPORT | Summary of Care ---
Author Author [facility] Organization [facility] Address Unknown Phone Unavailable Encounter DUNIA Zaldivar(YVES) [id number] Date(s): 12/10/15 - 12/10/15 [facility] [address] [place] [address]- Discharge Disposition: Home Attending Physician: Maxx Lundberg MD Referring Physician: Maxx Lundberg MD Vital Signs Most recent to 1 oldest [Reference Range]: Height 160.02 cm (12/10/15 12:44 PM) Weight 109.091 kg (12/10/15 12:44 PM) Body Mass Index 42.6 m2 (12/10/15 12:44 PM) Problem List Condition Effective Dates Status [...] Status penicillin Active PLASTIC TAPE Active Medications gabapentin 300 mg oral capsule 300 mg=1 cap, PO, Daily, 0 Refill(s) Start Date: 12/10/15 Status: Ordered glyBURIDE 5 mg oral tablet 5 mg=1 tab, PO, Breakfast, # 30 tab, 0 Refill(s) Start Date: 12/10/15 Status: Ordered isosorbide dinitrate 10 mg oral tablet 10 mg=1 tab, PO, QID, # 120 tab, 0 Refill(s) Start Date: 12/10/15 Status: Ordered spironolactone 50 mg oral tablet 50 mg=1 tab, PO, Daily, # 30 tab, 1 Refill(s) Start Date: 12/10/15 Stop Date: 01/09/16 Status: Ordered torsemide 20 mg oral tablet 20 mg=1 tab, PO, Daily, # 30 tab, 1 Refill(s) Start Date: 12/10/15 Stop Date: 01/09/16 Status: Ordered tramadol 50 mg oral tablet 50 mg=1 tab, PO, Daily, 0 Refill(s) Start Date: 12/10/15 Status: Ordered Vitamin D3 2000 intl units oral tablet 2,000 IntlUnit=1 tab, PO, Daily, 0 Refill(s) Start Date: 12/10/15 Status: Ordered Results HEMATOLOGY Most recent to 1 oldest [Reference Range]: WBC [3.7-10.4 K/CMM] 3.7 K/CMM (12/10/15 1:30 PM) RBC [4.20-5.40 4.32 M/CMM M/CMM] (12/10/15 1:30 PM) Hgb [12.0-16.0 g/dL] 11.9 g/dL *LOW* (12/10/15 1:30 PM) Hct [36.0-48.0 %] 37.3 % (12/10/15 1:30 PM) MCV [80.0-98.0 fL] 86.3 fL (12/10/15 1:30 PM) MCH [27.0-31.0 pg] 27.6 pg (12/10/15 1:30 PM) MCHC [32.0-36.0 32.0 g/dL g/dL] (12/10/15 1:30 PM) RDW [11.5-14.5 %] 16.3 % *HI* (12/10/15 1:30 PM) Platelet [133-450 74 K/CMM K/CMM] *LOW* (12/10/15 1:30 PM) MPV [7.4-10.4 fL] 8.7 fL (12/10/15 1:30 PM) Segs [45.0-75.0 %] 51.0 % (12/10/15 1:30 PM) Bands [0.0-11.0 %] 1.0 % (12/10/15 1:30 PM) Lymphocytes 38.0 % [20.0-40.0 %] (12/10/15 1:30 PM) Atypical Lymphs 3.0 % [<=0.0 %] *HI* (12/10/15 1:30 PM) Monocytes [2.0-12.0 7.0 % %] (12/10/15 1:30 PM) Segs-Bands # 1.9 K/CMM [1.5-8.1 K/CMM] (12/10/15 1:30 PM) Lymphocytes # 1.5 K/CMM [1.0-5.5 K/CMM] (12/10/15 1:30 PM) Monocytes # [0.0-0.8 0.3 K/CMM K/CMM] (12/10/15 1:30 PM) Tot Cell Ct 100 *NA* (12/10/15 1:30 PM) RBC Morph Normal (12/10/15 1:30 PM) Plt Morph Normal (12/10/15 1:30 PM) Retic Auto [0.5-1.5 2.7 % %] *HI* (12/10/15 1:30 PM) Immunizations No data available for this section Procedures Procedure Date Related Diagnosis Body Site Bone marrow aspirate examination1 04/03/15 Abdominal hysterectomy Appendectomy Blood transfusion Chemotherapy Cholecystectomy Knee arthroplasty Lobectomy of thyroid gland 1total of 8 bone marrow biopsies Social History Social History Type Response Smoking Status Never smoker; Type: Cigarettes; Exposure to Tobacco Smoke None; Cigarette Smoking Last 365 Days No; Reg Smoking Cessation Counseling No Assessment and Plan No data available for this section
--- OUTSIDE RECORDS SUMMARY | 2018-09-17 06:18 | XMS REPORT | Summary of Care ---
Author Author [facility] Organization [facility] Address Unknown Phone Unavailable Encounter DUNIA Zaldivar(YVES) [id number] Date(s): 03/24/17 - 03/24/17 [facility] [address] [place] [address]- Discharge Disposition: Home or Self Care Attending Physician: Maxx Lundberg MD Referring Physician: Maxx Lundberg MD Vital Signs No data available for this section Problem List Condition Effective Dates Status Health [...] rmed) Influenza(Confirmed) Resolved Iron deficiency Resolved anemia(Confirmed) MRSA Resolved infection(Confirmed) Myocardial Resolved infarction(Confirmed ) Non-Hodgkins Resolved lymphoma(Confirmed) Obesity(Confirmed) Resolved Pneumonia(Confirmed) Active Sleep Resolved apnea(Confirmed) Sleep Active apnea(Confirmed) Thyroid Resolved cancer(Confirmed) Thyroid Resolved cancer(Confirmed) 1right side ribs Allergies, Adverse Reactions, Alerts Substance Reaction Severity Status penicillin Active PLASTIC TAPE Active Medications Visipaque 100 mL, Route: IV, Drug Form: SOLN, ONCE, Start date: 03/24/17 11:30:00 CDT, Sto p date: 03/24/17 11:30:00 CDT Notes: (Same as: Visipaque).WASTE: F/P - Black; E - Municipal Trash Bin Start Date: 03/24/17 Stop Date: 03/24/17 Status: Completed Results CHEM PANEL Most recent to 1 oldest [Reference Range]: eGFR 58 mL/min/1.73m2 1 *NA* (03/24/17 8:35 AM) POC Creatinine 1.0 mg/dL [0.5-1.4 mg/dL] (03/24/17 8:35 AM) 1Result Comment: The eGFR is calculated using [...] be mul tiplied by the estimated BMI. Immunizations No data available for this section [...]
--- OUTSIDE RECORDS SUMMARY | 2018-09-17 06:18 | XMS REPORT | Summary of Care ---
Author Author [facility] Organization [facility] Address Unknown Phone Unavailable Encounter DUNIA Zaldivar(YVES) [id number] Date(s): 06/26/17 - 06/26/17 [facility] [address] [place] [address]- Discharge Disposition: Home or Self Care Attending Physician: Lauir Cuadra MD Vital Signs No data available for [...] Medications No data available for this section Results No data available for this section [...]
--- OUTSIDE RECORDS SUMMARY | 2018-09-17 06:18 | XMS REPORT | Summary of Care ---
Author Author [facility] Organization [facility] Address Unknown Phone Unavailable Encounter DUNIA Zaldivar(YVES) [id number] Date(s): 10/05/16 - 10/05/16 [facility] [address] [place] [address]- Discharge Disposition: Home or Self Care Attending Physician: Trevin Torre MD Referring Physician: Trevin Torre MD Vital Signs No data available for [...]
--- OUTSIDE RECORDS SUMMARY | 2018-09-17 06:18 | XMS REPORT | Summary of Care ---
Author Author [facility] Organization [facility] Address Unknown Phone Unavailable Encounter DUNIA Zaldivar(YVES) [id number] Date(s): 08/15/16 - 08/15/16 [facility] [address] [place] [address]- Discharge Disposition: Home or Self Care Attending Physician: Lucie Mills MD Referring Physician: Lucie Mills MD Vital Signs No data available for [...] No data available for this section Results CHEM PANEL Most recent to 1 oldest [Reference Range]: eGFR 75 mL/min/1.73m2 1 *NA* (08/15/16 1:17 PM) POC Creatinine 0.8 mg/dL [0.5-1.4 mg/dL] (08/15/16 1:17 PM) 1Result Comment: The eGFR is calculated [...]
--- OUTSIDE RECORDS SUMMARY | 2018-09-17 06:18 | XMS REPORT | Summary of Care ---
Author Author [facility] Outpatient Imaging - [facility] Outpatient Imaging [facility] Address Unknown Phone Unavailable Encounter [facility](FIN) [id number] Date(s): 03/22/17 - 03/22/17 [facility] [address] [place] [address] [phone] Discharge Disposition: Home or Self Care Attending Physician: Pricila Steiner MD Vital Signs No data available for [...]
--- OUTSIDE RECORDS SUMMARY | 2018-09-17 06:18 | XMS REPORT | Summary of Care ---
Author Author [facility] Organization [facility] Address Unknown Phone Unavailable Encounter DUNIA Zaldivar(YVES) [id number] Date(s): 10/25/16 - 10/25/16 [facility] [address] [place] [address]- Discharge Disposition: Home or Self Care Attending Physician: Lauri Cuadra MD Admitting Physician: Lauri Cuadra MD Vital Signs No data available [...]
--- OUTSIDE RECORDS SUMMARY | 2018-09-17 06:18 | XMS REPORT | Summary of Care ---
Author Author [facility] Outpatient Imaging - [facility] Outpatient Imaging [facility] Address Unknown Phone Unavailable Encounter [facility](FIN) [id number] Date(s): 01/19/17 - 01/19/17 [facility] Outpatient Imaging [facility] [address] [place] [address] [phone] Discharge Disposition: Home or Self Care Attending Physician: Erna Baez MD Vital Signs No data available for [...]
--- OUTSIDE RECORDS SUMMARY | 2018-09-17 06:18 | XMS REPORT | Summary of Care ---
Author Author [facility] Organization [facility] Address Unknown Phone Unavailable Encounter DUNIA Zaldivar(YVES) [id number] Date(s): 11/24/16 - 11/24/16 [facility] [address] [place] [address]- [phone] Discharge Disposition: Home or Self Care Attending Physician: Lauri Cuadra MD Referring Physician: Lauri Cuadra MD Vital Signs No [...] [Reference Range]: eGFR 58 mL/min/1.73m2 1 *NA* (11/24/16 8:09 AM) POC Creatinine 1.0 mg/dL [0.5-1.4 mg/dL] (11/24/16 8:09 AM) 1Result Comment: The eGFR is calculated [...]
--- NOTE | 2018-09-18 14:39 | Operative Report ---
DATE OF PROCEDURE: September 17, 2018 [facility] [employer] ADMINISTRATOR PROCEDURE NOTE INDICATIONS: Coronary artery disease. Abnormal stress test. PROCEDURES PERFORMED: 1. Left heart catheterization, selective coronary angiography, left ventriculography. 2. Deployment of right wrist transradial band. COMPLICATIONS: None. RECOMMENDATIONS: Medical therapy including consideration for insertable loop recorder/permanent pacemaker. PROCEDURE: Access was obtained in the right radial artery. A 5-Brazilian sheath was placed. Diagnostic coronary angiogram revealed mild coronary artery disease in all vessels, diffuse 20% stenosis. No critical stenosis or occlusions were noted. LV ejection fraction 50%. LV end-diastolic pressure 12. No gradient across the aortic valve on pullback. Right wrist TR band applied. Patient discharged home same day. Job#: [id number] EV
== END | disposition home or self-care (01) ==
LOC: CATH LAB 06:13
PROVIDERS: ATTEND Internal Medicine Interventional Cardiology
DX: I25.10 Atherosclerotic heart disease of native coronary artery without angina pectoris (principal); R94.39 Abnormal result of other cardiovascular function study; I73.9 Peripheral vascular disease, unspecified; E11.9 Type 2 diabetes mellitus without complications; Z88.0 Allergy status to penicillin; Z88.8 Allergy status to other drugs, medicaments and biological substances; Z91.048 Other nonmedicinal substance allergy status; Z01.812 Encounter for preprocedural laboratory examination; Z79.84 Long term (current) use of oral hypoglycemic drugs; Z79.02 Long term (current) use of antithrombotics/antiplatelets; Z68.41 Body mass index [BMI] 40.0-44.9, adult; Z85.3 Personal history of malignant neoplasm of breast; Z85.72 Personal history of non-Hodgkin lymphomas; Z85.850 Personal history of malignant neoplasm of thyroid; Z85.830 Personal history of malignant neoplasm of bone; Z82.49 Family history of ischemic heart disease and other diseases of the circulatory system
CPT/HCPCS: 36415; 80053; 85025; 93458; C1887; J1644; J2001; J2250; J7030; Q9967

== ENCOUNTER → 2019-07-15 | Day surgery (SDC) | payer MEDICARE, BC ==
[2019-07-11 11:45] LABS: BASOPHILS % 0.4 % (0.0-1.0); EOSINOPHILS # (AUTO) 0.1 (0.0-0.4); EOSINOPHILS % 1.9 % (0.0-6.0); HEMATOCRIT 44.3 % (34.2-44.1); HEMOGLOBIN 13.5 g/dL (12.0-16.0); LYMPHOCYTES # (AUTO) 1.5 (1.0-3.2); LYMPHOCYTES % 19.4 % (18.0-39.1); MEAN CORPUSCULAR HEMOGLOBIN 29.2 pg (28-32); MEAN CORPUSCULAR HGB CONC 30.5 g/dL (31-35); MEAN CORPUSCULAR VOLUME 95.7 fL (81-99); MONOCYTES # (AUTO) 0.6 (0.2-0.8); MONOCYTES % 7.7 % (4.4-11.3); NEUTROPHILS # (AUTO) 5.3 (2.1-6.9); NEUTROPHILS % 70.1 % (38.7-80.0); PLATELET COUNT 89 x10e3/uL (140-360); RED BLOOD COUNT 4.63 x10e6/uL (3.6-5.1); RED CELL DISTRIBUTION WIDTH 15.4 % (11.7-14.4)
[2019-07-11 12:03] LABS: ALBUMIN 3.5 g/dL (3.5-5.0); ALBUMIN/GLOBULIN RATIO 0.9 (0.8-2.0); ANION GAP 12.7 mmol/L (8-16); CALCIUM 9.6 mg/dL (8.4-10.2); CREATININE, SERUM 0.94 mg/dL (0.57-1.11); POTASSIUM 4.7 mmol/L (3.5-5.1)
[2019-07-11 13:06] LABS: HYPOCHROMASIA SLIGHT; PLATELET ESTIMATE SLIGHTLY DECREASED; PLATELET MORPHOLOGY COMMENT NORMAL; RBC MORPHOLOGY COMMENT NORMAL
--- NOTE | 2019-07-11 16:43 | NUR ---
Dr. Francis notified of platelet 89. No new orders at this time.
[~2019-07-15] VITALS: Ht 160 cm; Wt 117.9 kg
[~2019-07-15] MED LIST changes: +ACETAMINOPHEN325 M1 PO; -ALPRAZOLAM 0.5 MG TAB ONE; +BENZOCAINE 20% SPR 60 ML CAN ONE; +CALCIUM MAGNES1 EAC1 PO; +CEFPODOXIME PR200 MG; -DIPHENHYDRAMINE HCL 25 MG CAP ONE; +ELIQUIS2.5 MG PO; -FENTANYL CITRATE/PF 100MCG/2 ML INJ ONE; -HEPARIN SOD (PORCINE) 1000 UNIT/ML 30ML ONE; -HEPARIN SOD/SOD CHLORIDE 2,000 ML ONE; -IOPAMIDOL 370 MG/ML 200 ML INFUS..BTL INJ ONE; +IRON PO; +KETAMINE HCL INJ 50 MG/ML 10 ML VIAL ONE; -LIDOCAINE HCL 1% LOCAL INJ 20 ML VIAL ONE; +NIGHT TIME SOF1 EACH PO; -NITROGLYCERIN/D5W 200 MCG/ML 250 ML ONE; +PROPOFOL IV EMULSION 10 MG/ML 20 ML VIAL ONE; +ULTRAM50 MG PO; -VERAPAMIL HCL 2.5 MG/ML 2 ML VIAL ONE; +[UNRECOGNIZED DRUG - OTHER] PO
--- OUTSIDE RECORDS SUMMARY | 2019-07-15 07:49 | XMS REPORT ---
Author Author [facility] Address Unknown Phone Unavailable Care Team Providers Care Windows [employer] Deployment Lead Name Role Phone Unavailable Unavailable Payers Payer Name Policy Type Policy Number Effective Date Expiration Date Problems This patient has no known problems. Allergies, Adverse Reactions, Alerts Allergy Name Allergy Type Status Severity Reaction(s) Onset Date Inactive Date Treating Clinician Comments Penicillins DA Active SV 2013-07-14 00:00:00 adhesive tape DA Active NH 2013-07-14 00:00:00 tomato FA Active NH 2013-07-14 00:00:00 Medications This patient has no known medications. Encounters Start Date/Time End Date/Time Encounter Type Admission Type Attending Clinicians Care Facility Care Department Encounter ID 2019-07-09 14:22:00 2019-07-09 14:22:00 Outpatient [facility] [id number] 2019-02-25 12:33:00 2019-02-25 12:33:00 Outpatient [facility] PUL [id number] 2019-02-14 12:00:00 2019-02-14 12:00:00 Outpatient [facility] [id number] 2018-12-31 16:36:00 2018-12-31 13:50:00 Inpatient [facility] [id number] Results Test Description Test Time Test Comments Text Results Atomic Results Result Comments CREATININE W ESTIMATED GFR 2019-05-26 11:39:00 BEDSIDE CREATININE (test code=CREATBED) 0.8 MG/DL 0.6-1.3 GLOMERULAR FILTRATION RATE POC (test code=GFRBED) 75 ML/MIN ENTER BEDSIDE CREATININE RESULT: 0.84Serial Number: [id number] Name of User Perfo rming Test: PACOSTA- CT ANGIO [id number] 11:18:00 Name: YASHIRA HOYT [facility] : 1945 Age/S: 73 / F [address] [place] [address] Blvd Unit #: [id number] Loc: [place] [address] Phys: Shayan Gautam MD Acct: [id number] Dis Date: Status: REG CLI PHONE #: [phone] Exam Date: 05/26/2019 0941 FAX #: [phone] Reason: AFIB EXAMS: CPT CODE: [id number] CT ANGIO CHEST [address] ANGIOGRAM WITH IV CONTRAST (PULMONARY VEIN MAPPING) 05/26/2019. MEDICAL HISTORY: Atrial fibrillation. Preoperative for ablation procedure. COMPARISON STUDIES: Chest 2 views 07/14/2013. ADMINISTERED CONTRAST: 100 mL of Isovue 300 intravenously. DLP: 2682.8 mGy-cm FINDINGS: Contiguous 0.5 mm axial images of the chest were obtained with IV contrast using the CT angiogram protocol with a 64-slice multidetector scanner. Images were obtained from the thoracic inlet through below the level of t he adrenal glands. Particular attention was given to the left atrium and p ulmonary veins. The acquired data was used to create multiplanar reformats and 3D volume rendering reconstructions with the use of the work station as per CT Angiogram protocol. CT imaging performed at this location utiliz es radiation dose optimization techniques which include one or more of the following: -Automated exposure control -Adjustment of the mA and/or kV according to patient size -Use of iterative reconstruction techn ique Pulmonary vein measurements (measurement plane obtained 5 mm distal to vessel ostia): Right superior pulmonary vein (RSPV ): 19 mm. Right inferior pulmonary vein (RIPV): 23 mm. Left superior pulmonary vein (LSPV): 20 mm. Left inferior pulmonary vein (LIPV): 18 mm; broad area of contact between the left inferior pulmonary vein and the an terior aortic wall over an approximately 23 mm surface. No a nomalous pulmonary venous return. No cor triatriatum. Bilateral n oncalcified pulmonary nodules are seen ranging from 5-7 mm in diameter. I ndex nodules as described below, - Noncalcified lingular ; size: 5 mm; Series 3, image 222. - Non calcified lingular ; size: 7 mm; Serie s 3, image 385. - Non-calcified right middle lobe ; size: 5mm; Series 3, image 389. - Non-calcified right upper lobe ; size: 6 mm; Series 3, paula ge 170. PAGE 1 Signed Report (CONTINUED) Name: YASHIRA HOYT [facility] : 1945 Age/S: 73 / F [address] [place] [address] Blvd Unit #: [id number] Loc: [place] [address] Phys: Shayan Gautam MD Acct: [id number] Dis Date: Status: REG CLI PHONE #: [phone] Exam Date: 05/26/2019 09 FAX #: [phone] Reason: AFIB EXAMS: CPT CODE: [id number] CT ANGIO CHEST [address]8718 < Continued> IMPRESSION: 1. Two right and 2 left main pulmonary vein trunks with measured trunk diameters as described. 2. Hockey-stick left atrial appendage with turbulent flow at the appendage apex limiting assessment for thrombus. This area can be evaluated with transverse transesophageal echo, if indicated. 3. Otherwise no signs of intracardiac thrombus, ventricular hypertrophy or aneurysm. 4. Severe multivessel coronary and mitral annulus calcification. 5. Moderate aortic atherosclerosis without aneurysm or dissection. 6. No central or segmental pulmonary emboli along the visualized segments. 7. No pericardial thickening or effusion. 8. Incidental bilateral noncalcified pulmonary nodules ranging from 5-7 mm in diameter, inflammatory and or neoplastic. Recommend follow-up with dedicated diagnostic chest CT for better characterization and to help establish the patient's baseline for longitudinal workup. 9. Limited inspiration with incomplete pulmonary expansion and mosaic areas of pulmonary air trapping. 10. Severe thoracic spondylosis with prior multilevel kyphoplasty. Please note that vessels bifurcating at a distance equal to or greater than 5 mm from the expected outer margin of the left atrium are considered to have a common ostium. ____ Reference: Guidelines for Management o f Incidental Pulmonary Nodules Detected on CT Images: From the [employer] 2017. FOR INTERNAL CODING PURPOS ES ONLY RESULT CODE: NOD SL: ER-H at 1118 Repo rted and signed by: Tavares Mckeon M.D. PAGE 2 Signed Report (CONTINUED) Name: YASHIRA HOYT [facility] : 1945 Age/S: 73 / F [address] [place] [address] Unit #: [id number] Loc: [place] [address] Phys: Shayan Gautam MD Acct: [id number] Dis Date: Status: REG CLI PHONE #: [phone] Exam Date: 940 FAX #: [phone] Reason: AFIB EXAMS: CPT CODE: [id number] CT ANGIO CHEST 28595 <Continued> CC: Nancy Brush MD; Shayan Barrow MD Technologist:RT Julián(R)(CT) CTDI: DLP: Trnscb Date/Time: 05/26/2019 (1118) [email or web address] Orig Print D/T: S: 05/26/2019 (112) PAGE 3 Signed Report
[2019-07-15 08:56] VITALS: BP 152/72
[2019-07-15 10:00] VITALS: BP 180/88
[2019-07-15 10:15] VITALS: BP 126/63
[2019-07-15 10:30] VITALS: BP 135/74
[2019-07-15 10:45] VITALS: BP 136/70
--- NOTE | 2019-07-15 11:00 | NUR ---
Procedure Note- 0938- patient taken to OR room #8 for RICKI. Anesthesia at bedside assessing patient. 0945- physician arrives and time out performed with all participating staff. 0949- Hurricaine spray x2. Patient tolerated well. 0951- RICKI probe in. 0956- RICKI probe out. 1000- patient transferred to PACU bay #[address] Bhardwaj, anesthesiologist at bedside.
== END | disposition home or self-care (01) ==
LOC: OR 07:40
PROVIDERS: ATTEND Internal Medicine Interventional Cardiology
DX: I48.91 Unspecified atrial fibrillation (principal); I11.0 Hypertensive heart disease with heart failure; I50.9 Heart failure, unspecified; E11.9 Type 2 diabetes mellitus without complications; R05 Cough; Z88.0 Allergy status to penicillin; Z01.812 Encounter for preprocedural laboratory examination; Z79.84 Long term (current) use of oral hypoglycemic drugs
CPT/HCPCS: 36415 ×2; 80053; 82948; 85025; 93312; 93320; 93325; J2250; J2704; J7030; 93307